=== PATIENT | female | born 1950 | race Caucasian/White ===

== ENCOUNTER 2023-05-29 08:51 | Emergency (ER) | payer MEDICARE, MEDICAID, SELFPAY ==
--- NOTE | ~2023-05-29 | CT_ITS ---
EXAMINATION: CT CHEST WITH CONTRAST CLINICAL INFORMATION: Chest trauma COMPARISON: CT abdomen and pelvis performed concurrently. TECHNIQUE: Multidetector volumetric CT imaging of the chest was obtained after the administration of 85 mL of Omnipaque 350 intravenous contrast without immediate adverse reactions. Axial MIP volume rendering provided. Sagittal and coronal reformatted images were obtained. This CT examination was performed using dose optimization techniques as appropriate, variously including the following: *Automated exposure control *Adjustment of mA and/or kV according to patient size (this includes techniques or standardized protocols for targeted exams where dose is matched to indication/reason for exam; i.e. extremities or head) *Use of iterative reconstruction technique DLP: 371.37 mGy-cm FINDINGS: LUNGS: Few scattered calcified pulmonary granulomas. A few scattered solid pulmonary micronodules for example in the right upper lobe, 9:181 and right lower lobe, 9:325. Scattered bandlike areas of atelectasis. A 0.7 x 0.5 cm solid left upper lobe pulmonary nodule, 9:216, average diameter of 0.6 cm. PLEURA: No pleural effusion. No pneumothorax. MEDIASTINUM: No cardiomegaly. Aorta and pulmonary artery are normal in caliber. No mediastinal lymphadenopathy. No hilar lymphadenopathy. CORONARY ARTERY CALCIFICATION: Coronary artery calcification is present. CHEST WALL/AXILLA: No axillary or internal mammary lymphadenopathy. UPPER ABDOMEN: Please refer to separately dictated CT abdomen and pelvis for evaluation of the upper abdomen. OSSEOUS STRUCTURES: Acute mildly displaced right posterior eighth rib fracture and nondisplaced right anterior seventh, eighth and ninth rib fractures. Partially imaged anterior cervical fusion hardware. CT/CT chest w IV con IMPRESSION: Acute mildly displaced right posterior eighth rib fracture and nondisplaced right anterior seventh through ninth rib fractures. No pneumothorax. Scattered solid pulmonary nodules measuring up to 0.6 cm average diameter. Per the 2017 revised Fleischner Society guidelines, recommend CT follow-up at 3-to-6 months. In high-risk patients, subsequent CT follow-up at 18-24 months is recommended. In low-risk patients, subsequent CT follow-up at 18-24 months is optional. The findings and recommendations were discussed with SHAHID Alvarez by telephone at 05/29/2023 12:39 PM and it was ascertained that the content and urgency of the report was understood at the time of direct communication.
--- NOTE | ~2023-05-29 | CT_ITS ---
EXAMINATION: CT ABDOMEN AND PELVIS WITH CONTRAST CLINICAL INFORMATION: Trauma. Fall. Abdominal pain. COMPARISON: Today's chest CT. TECHNIQUE: Multidetector volumetric images were obtained from the superior aspect of the liver through the pubic symphysis following administration 85 mL of Omnipaque 350 intravenous contrast. Sagittal and coronal reformatted images were obtained on the technologist's workstation. Oral contrast: No This CT examination was performed using dose optimization techniques as appropriate, variously including the following: *Automated exposure control *Adjustment of mA and/or kV according to patient size (this includes techniques or standardized protocols for targeted exams where dose is matched to indication/reason for exam; i.e. extremities or head) *Use of iterative reconstruction technique DLP: 1007.55 mGy-cm FINDINGS: LUNG BASES: Tiny calcified granuloma at the right base. LIVER, GALLBLADDER, AND BILIARY TREE: The liver is normal in size, shape, and attenuation. No focal hepatic lesion or biliary ductal dilatation is present. Status post cholecystectomy. Normal caliber bile ducts. PANCREAS: Uniform pancreatic enhancement without mass, ductal dilation or inflammation. SPLEEN: Normal size. Adjacent to 12 mm accessory spleen. ADRENAL GLANDS: No mass. KIDNEYS AND URETERS: There is a crescentic mixed attenuation (50 Hounsfield units) 10 mm subcapsular collection overlying the lateral interpolar and upper pole of the right kidney. This is suspicious for acute hemorrhage. Deformation of the renal parenchyma with concave margin raises concern for page kidney. No parenchymal laceration identified. Close clinical follow-up advised. Left kidney is normal in appearance. No hydronephrosis or hydroureter. 3 cm exophytic simple left renal cyst. No follow-up indicated. BLADDER: Unremarkable. GASTROINTESTINAL TRACT: Moderate right side predominant colonic stool burden. Sigmoid predominant diverticulosis without diverticulitis. Appendix not visualized. No pericecal inflammation. No small bowel obstruction. No mesenteric abnormality. Visualized esophagus and stomach within normal limits. No free air or free fluid. Line rectal fecal impaction. ABDOMINAL WALL: Subcutaneous fat stranding underlying prior lumbar surgery. LYMPH NODES: Normal. VASCULAR: Mild atherosclerotic peripheral vascular disease. PELVIC VISCERA: A 4.2 cm unilocular thin-walled simple fluid attenuation left ovarian cyst. Probable benign cyst. Follow with nonurgent ultrasound in 3-6 months. Uterus and adnexa are otherwise unremarkable. Incidental 13 mm calcified uterine fundal fibroid. OSSEOUS STRUCTURES: Left hip replacement. Degenerative changes in the right hip, sacroiliac joints and spine. Prior L4-L5 lumbar fusion. Grade 1 less than 10 mm L4-L5 anterolisthesis. No evidence of hardware failure. No acute compression deformity identified. There is an acute nondisplaced right posterior eighth rib fracture. CT/CT abdomen pelvis w IV con IMPRESSION: 1. There is a mixed attenuation crescentic fluid collection surrounding the right kidney and compressing the parenchyma consistent with subcapsular hemorrhage. This raises the possibility of page kidney. Close clinical correlation and follow-up is required. 2. Right posterior eighth rib fracture. 3. Rectal fecal impaction. Fleischner guidelines were followed.
--- NOTE | ~2023-05-29 | CT_ITS ---
EXAMINATION: CT HEAD WITHOUT CONTRAST CLINICAL INFORMATION: Fall head strike COMPARISON: None TECHNIQUE: Contiguous axial imaging was performed from the skull base to vertex without intravenous administration of contrast. This CT examination was performed using dose optimization techniques as appropriate, variously including the following: *Automated exposure control *Adjustment of mA and/or kV according to patient size (this includes techniques or standardized protocols for targeted exams where dose is matched to indication/reason for exam; i.e. extremities or head) *Use of iterative reconstruction technique DLP: 1483 mGy-cm FINDINGS: Beam hardening and patient motion artifact slightly limits evaluation. There is no evidence of acute intracranial hemorrhage or territorial infarction. Chronic white matter small vessel ischemic changes. No abnormal mass effect or midline shift is seen. Wilson to white matter differentiation is well preserved. No extra-axial fluid collections are identified. The ventricles are normal in size. There is no abnormal attenuation within the brain parenchyma. The osseous structures and soft tissues are normal. Trace fluid right mastoid air cells. Mucoperiosteal thickening versus polyp right maxillary sinus. The mastoid air cells and visualized portions of the paranasal sinuses are well aerated. Atherosclerotic calcifications. CT/CT cervical spine wo IV con IMPRESSION: 1. Beam hardening and patient motion artifact slightly limits evaluation. 2. No acute intracranial pathology. 3. Chronic white matter small vessel ischemic changes. 4. Trace fluid right mastoid air cells. Mucoperiosteal thickening versus polyp right maxillary sinus. EXAMINATION: Noncontrast CT scan of the cervical spine. INDICATION: Fall COMPARISON: None. TECHNIQUE: Helical, multidetector axial images were obtained from the occiput to the upper thorax. Coronal and sagittal reformats of the cervical spine were provided for interpretation. DLP: 1483 mGy-cm FINDINGS: Status post anterior cervical fusion with disc spacer at C5-C6. Spinal hardware is grossly intact. No acute fractures or dislocations of the cervical spine are seen. Straightening of normal cervical curvature. Multilevel degenerative changes. Anatomic alignment and positioning of the vertebral bodies and posterior elements is noted. The atlantoaxial joint and craniovertebral articulations are normal without evidence of subluxation. There is no prevertebral soft tissue swelling. The thyroid gland and visualized portions of the lung apices and mediastinum are unremarkable. IMPRESSION: 1. Status post anterior cervical fusion with disc spacer at C5-C6. Spinal hardware is grossly intact. 2. No acute visible fracture or dislocation. 3. Straightening of normal cervical curvature. 4. Multilevel degenerative changes.
--- NOTE | 2023-05-29 09:01 | ECG_ITS ---
Test Reason : FALL Blood Pressure : / mmHG Vent. Rate : 069 BPM Atrial Rate : 069 BPM P-R Int : 326 ms QRS Dur : 076 ms QT Int : 368 ms P-R-T Axes : 048 -20 034 degrees QTc Int : 394 ms Sinus rhythm with 1st degree A-V block Minimal voltage criteria for LVH, may be normal variant ( R in aVL ) Borderline ECG No previous ECGs available Referred By: Kristin Rasmussen Electronically Signed By:ULISES WILLIAMSON
--- NOTE | 2023-05-29 09:03 | ED.GENADULT ---
HPI - General Adult General Chief complaint: Fall Stated complaint: FALL LAST NOC,UNABLE TO GET UP,R RIB PAIN PER EMS Time Seen by Provider: 05/29/23 09:03 Source: patient Mode of arrival: EMS Limitations: no limitations History of Present Illness HPI narrative: Patient is a 73 year old female with a past medical history of herniated discs, cervical and lumbar spinal surgery in the last year, HTN, HLD, ERUM on SNRI, presenting via EMS status post fall with right rib pain. Patient tripped over the corner of a cabinet around 10pm last night, striking her right side on the cabinet as she fell to the ground. Patient denies head strike, LOC or dizziness at the time of the fall. Patient was unable to get up so she slept on the floor until this morning when she called a friend to help her, who then called EMS. Patient reports muscle spasms with 10/10 pain to her back. Patient has never had muscle spams in her back before. Patient denies fever, chills, cough, saddle paraesthsias, bowel incontinence, pain or loss of sensation of the lower extremities. Patient is incontinent of urine at baseline. Patient is ambulatory with a cane at baseline. Of note, Patient reports she had a viral illness a few weeks ago and her right ear is blocked. Not on thinners Related Data Allergies Allergy/AdvReac Type Severity Reaction Status Date / Time Penicillins Allergy Intermediate Hives Verified 05/29/23 09:04 Review of Systems Review of Systems: Constitutional : No Weight loss, No Fever, No Chills, No Fatigue, No Malaise ENT/Mouth : + Blocked right ear. No sore throat, No Rhinorrhea Eyes: No Eye Pain, No Swelling, No Redness Cardiovascular : No Chest Pain, No SOB, No Dyspnea on Exertion, No Orthopnea, No Edema, No Palpitations Respiratory : No Cough, No Sputum, No Wheezing Gastrointestinal : No Nausea, No Vomiting, No Diarrhea, No Constipation, No abdominal Pain, No Hematochezia, No Melena Genitourinary : No Dysuria, No Urinary Frequency, No Hematuria, Musculoskeletal : + Muscle spams in back, right sided rib/back pain. No joint pain, No Myalgias, No Joint Swelling Skin : No Skin Lesions, No rash Neuro : No Weakness, No Numbness, No Dizziness, No Headache Psych : No Anxiety/Panic, No Depression Heme/Lymph: No Bruising, No Bleeding,No Lymphadenopathy Endocrine : No Polyuria, No Polydipsia All other systems reviewed and are negative Yes all other systems are reviewed and are negative [facility] Past Medical History Attestation statement: The following information was validated with the patient. Source: old records reviewed and nursing notes reviewed Onset Date is defined in the Problem List Problems that require an onset date and time if occurred within 24 hrs of arrival to the ED Aortic Dissection and Rupture; Neurologic impairment; Cardiopulmonary Arrest; Endotracheal Intubation; Insertion or Replacement of Mechanical Circulatory Assist Device Medical History (Updated 05/29/23 @ 12:39 by SHAHID Alvarez) FH: total knee replacement High cholesterol Anxiety Fibromyalgia High blood pressure Surgical History (Updated 05/29/23 @ 09:12 by Gris Delong RN) S/P cholecystectomy S/P hip replacement H/O neck surgery Previous back surgery Social History Social History Smoked in Last 30 Days: No Use of substances other than those prescribed or required for medical reasons: No Advance Directives: No Advance Directives Information Provided: No Physical Exam ED Vital Signs: Vital Signs - 24 hr 05/29/23 09:04 05/29/23 11:38 05/29/23 14:00 Temperature 98.0 F 97.9 F 98.1 F Pulse Rate 68 68 69 Respiratory Rate 18 20 20 Blood Pressure 170/70 H 164/69 H 168/68 H Pulse Oximetry 95 97 98 Oxygen Delivery Method Room Air Room Air Room Air BMI result Body Mass Index 37.9 vss significant for hypertension 170/70. Appearance: Alert.? Oriented X3.? No acute distress.? Head: Normocephalic, atraumatic, no step-offs or deformities Eyes: Pupils equal, round and reactive to light.? Ears: No mastoid tenderness. Unable to visualize bilateral TM due to cerumen impaction. External ear canal without erythema, edema or discharge. Neck: Normal inspection.? Neck supple.? CVS: Normal heart rate and rhythm.? Pulses normal.?+ significant tenderness to palpation to right ribs 7-11 on the lateral and posterior aspect. Respiratory: No respiratory distress.? Breath sounds normal.? Abdomen: Soft and nontender.? Skin: Skin warm and dry.? Normal skin color.? Normal skin turgor.? Extremities: No lower extremity edema.? No calf ttp. 5/5 strength to bilateral upper and lower extremities Back: Severe tenderness to light palpation of the right back. of No midline tenderness, no C-spine tenderness, full range of motion, no CVA tenderness bilaterally. Neuro: Oriented X 3.? No motor deficit.? No sensory deficit. CN 2-12 intact. No saddle paresthesias. Full sensation of the upper and lower extremities. Course Reevaluation(s) Reevaluation #1: CBC w/ leukocytosis and shift likely due to trauma. Chemistry no acute findings requiring intervention patient's transaminases slightly elevated, total CPK elevated 378 however not meeting criteria for rhabdo. This is likely secondary to prolonged downtime. Troponin 11.1, EKG nonischemic. Coags unremarkable. Patient is COVID negative. CT abdomen and pelvis with mixed attenuation fluid collection surrounding the right kidney compressing the parenchyma consistent with subcapsular hemorrhage and right posterior 8th rib fracture. Will reach out to [facility] as we do not have trauma at this facility. CT head status post anterior cervical fusion with a disc space at C5-C6. No acute visible fracture. CT head no intracranial pathology. Time: 12:15 Reevaluation #2: Dr. Cooper [facility] accepts this transfer. Time: 12:29 Reevaluation #3: Patient aware of transfer. Type and screen pending. Images uploaded to [facility] Just received an additional call from [facility] ribs 7 through 10 appear to be broken on right. They will upload final results to the CT scan. Also noted to have pulmonary nodules. Time: 12:40 Medications Administered Discontinued Medications Generic Name Dose Route Start Last Admin Trade Name Donnie PRN Reason Stop Dose Admin Diazepam 2 mg 05/29/23 10:28 05/29/23 10:31 Diazepam 2 Mg Tablet PO 05/29/23 10:29 2 mg ONCE ONE Administration Hydromorphone HCl 1 mg 05/29/23 12:19 05/29/23 12:25 Hydromorphone Hcl 1 Mg/Ml Syringe IVPUSH 05/29/23 12:20 1 mg ONCE ONE Administration Protocol Sodium Chloride 500 mls @ 500 mls/hr 05/29/23 10:30 05/29/23 11:31 Ns IV 05/29/23 11:29 Infused .Q1H KEMAR Infusion Iohexol 100 ml 05/29/23 10:41 05/29/23 10:41 Iohexol 350 Mg/Ml 100 Ml Infus..Btl IV 05/29/23 10:42 85 ml ONCE ONE Administration Lidocaine 2 patch 05/29/23 09:28 05/29/23 09:48 Lidocaine 4 % Patch Adh..Patch TRANSDERMA 05/29/23 09:29 2 patch ONCE ONE Administration Protocol Morphine Sulfate 4 mg 05/29/23 09:26 05/29/23 09:48 Morphine Sulfate 4 Mg/Ml Cartridge IVPUSH 05/29/23 09:27 4 mg ONCE ONE Administration Protocol Medical Decision Making Medical Decision Making [facility] Narrative: Patient is a 73 year old female with a past medical history of herniated discs, cervical and lumbar spinal surgery in the last year, HTN, HLD, ERUM on SNRI, presenting via EMS status post fall with right rib pain. PE significant for severe pain to light palpation of the right lateral and mid back, muscle spams. Most likely rib fracture. Unlikely cauda equina, spinal fracture, pneumothorax, flail chest. Will rule out traumatic injury to chest/abd/pelvis. Will rule out UTI, metabolic derangments. Plan labs, imaging, EKG Differential Diagnosis Differential Diagnoses: The differential diagnosis associated with the presentation includes Most likely rib fracture. Unlikely cauda equina, spinal fracture, pneumothorax, flail chest. Will rule out traumatic injury to chest/abd/pelvis. Will rule out UTI, metabolic derangments. Admission/Observation Consideration of admission/observation: Escalation of care including admission/observation considered Consult Healthcare Provider Management of the patient was discussed with: Technical Aide ([facility] trauma ) Lab Data [facility] Lab Attestation statement: I reviewed the patient's lab results. CBC significant for leukocytosis of 13.4 with a left shift. CMP significant for elevated BUN 28, AST 71, ALT 61, CK 378, total protein 8.1 05/29/23 13:01 05/29/23 09:21 Labs: Lab Results 05/29/23 05/29/23 Range/Units 09:21 13:01 WBC 13.3 H 14.0 H (4.8-10.8) X10*3/uL RBC 4.90 4.54 (4.20-5.50) X10*6/uL Hgb 14.1 13.1 (12.0-16.0) g/dl Hct 42.7 39.8 (37.0-47.0) % MCV 87.1 87.7 (80.0-98.0) fL MCH 28.8 28.9 (27.0-33.0) pg MCHC 33.0 32.9 (31.0-35.0) g/dl RDW 12.5 12.5 (11.0-16.0) % Plt Count 259 254 (160-400) X10*3/uL MPV 10.2 10.2 (9.4-12.3) fL Immature Gran % (Auto) 0.4 0.3 (0.0-0.4) % Neut % (Auto) 88.3 H 84.2 H (45-73) % Lymph % (Auto) 6.9 L 9.3 L (20-40) % [place] % (Auto) 3.7 5.4 (2-11) % Eos % (Auto) 0.4 0.4 (0-4) % Baso % (Auto) 0.3 0.4 (0-2) % Lymph # (Auto) 0.9 L 1.3 (1.2-4.9) X10*3/uL [place] # (Auto) 0.5 0.8 (0.1-1.2) X10*3/uL Eos # (Auto) 0.1 0.1 (0.0-0.4) X10*3/uL Baso # (Auto) 0.0 0.1 (0.0-0.2) X10*3/uL Abs Immat Gran (auto) 0.05 H 0.04 H (0.00-0.03) X10*3/uL Absolute Neuts (auto) 11.8 H 11.8 H (2.0-8.3) x10*3/uL Absolute Nucleated RBC 0.000 0.000 (0.0-0.012) X10*3/uL Nucleated RBC % (auto) 0.0 0.0 (0.0-0.2) /100WBC PT 10.9 L (11.1-13.3) SEC INR 0.9 (0.9-1.1) Sodium 139 (135-145) mmol/L Potassium 4.6 (3.3-5.1) mmol/L Chloride 109 H (96-108) mmol/L Carbon Dioxide 21 L (22-29) mmol/L Anion Gap 14 (12-20) BUN 28 H (9-16) mg/dL Creatinine 1.06 (0.5-1.4) mg/dL Estim Creat Clear Calc 62.1 Estimated GFR 51 Random Glucose 103 (60-115) mg/dL Calcium 9.6 (8.4-10.2) mg/dL Magnesium 2.1 (1.6-2.6) mg/dL Total Bilirubin 0.6 (0.0-1.0) mg/dL AST 71 H (5-31) U/L ALT 61 H (0-31) U/L Alkaline Phosphatase 132 H (39-117) U/L Total Creatine Kinase 378 H (26-140) U/L Troponin I High Sens 11.1 (<3.5-17.0) ng/L Total Protein 8.1 H (6.5-8.0) g/dL Albumin 4.4 (3.5-5.0) g/dL COVID-19 (QUITA) Negative (Negative) COVID-19 Clin Com See Note Blood Type O Positive Antibody Screen NEGATIVE Independent Interpretation I performed an independent interpretation of an: EKG (Vent. Rate : 069 BPM Atrial Rate : 069 BPM P-R Int : 326 ms QRS Dur : 076 ms QT Int : 368 ms P-R-T Axes : 048 -20 034 degrees QTc Int : 394 ms Sinus rhythm with 1st degree A-V block Minimal voltage criteria for LVH, may be normal variant ( R in aVL ) Borderline ECG No ) and CT Scan Radiology Impression Discussion of test interpretation with radiology: I have reviewed the radiologist's reading. Radiologist Impression: Vent. Rate : 069 BPM Atrial Rate : 069 BPM P-R Int : 326 ms QRS Dur : 076 ms QT Int : 368 ms P-R-T Axes : 048 -20 034 degrees QTc Int : 394 ms Sinus rhythm with 1st degree A-V block Minimal voltage criteria for LVH, may be normal variant ( R in aVL ) Borderline ECG No previous ECGs available Chronic Conditions Patient?s care impacted by: Hypertension Critical Care Time Critical Care Time Critical Care Time: Yes Total Critical Care Time: 60 Attestation: I attest to this time spent taking care of the patient, obtaining history, physical, reviewing labs, imaging, speaking to my attending, speaking to specialist. Discharge Plan Discharge Clinical Impression: Fall, Hemorrhage of kidney, Multiple fractures of ribs Patient Disposition: Xfer Acute Care Hospital [place] [facility] [place] Interventions: Acute Care Transfer Worksheet (ED) Last Done: 05/29/23 14:20 Discharge Date/Time: 05/29/23 14:20
[2023-05-29 09:04] VITALS: BP 164/72; BP 170/70; PULSE 68; PULSE 74; RESP 18; TEMP 36.7; O2SAT 95; O2SAT 98; BMI 37.9
[2023-05-29 09:26] LABS: MANUAL DIFF FLAG NO
[2023-05-29 09:27] LABS: Basophils Percent Auto 0.3 % (0-2); Eosinophils Absolute Auto 0.1 X10*3/uL (0.0-0.4); Eosinophils Percent Auto 0.4 % (0-4); Hematocrit 42.7 % (37.0-47.0); Hemoglobin 14.1 g/dl (12.0-16.0); Imm Gran Abs Auto 0.05 X10*3/uL (0.00-0.03); Imm Gran Pct Auto 0.4 % (0.0-0.4); Lymphocytes Absolute Auto 0.9 X10*3/uL (1.2-4.9); Lymphocytes Percent Auto 6.9 % (20-40); Mean Corpuscular Hemoglobin 28.8 pg (27.0-33.0); Mean Corpuscular Volume 87.1 fL (80.0-98.0); Mean Platelet Volume 10.2 fL (9.4-12.3); Monocytes Absolute Auto 0.5 X10*3/uL (0.1-1.2); Monocytes Percent Auto 3.7 % (2-11); Neutrophils Absolute Auto 11.8 x10*3/uL (2.0-8.3); Neutrophils Percent Auto 88.3 % (45-73); Platelet Count 259 X10*3/uL (160-400); Red Cell Distribution Width 12.5 % (11.0-16.0); White Blood Count 13.3 X10*3/uL (4.8-10.8)
[2023-05-29 09:35] LABS: INTERNATIONAL NORM RATIO 0.9 (0.9-1.1); Prothrombin Time 10.9 SEC (11.1-13.3)
[2023-05-29 09:44] LABS: Alanine Aminotransferase 61 U/L (0-31); Albumin Level 4.4 g/dL (3.5-5.0); Alkaline Phosphatase 132 U/L (39-117); Anion Gap 14 (12-20); Aspartate Amino Transferase 71 U/L (5-31); Bilirubin Total 0.6 mg/dL (0.0-1.0); Blood Urea Nitrogen 28 mg/dL (9-16); Calcium 9.6 mg/dL (8.4-10.2); Carbon Dioxide 21 mmol/L (22-29); Chloride 109 mmol/L (96-108); Creatinine Clr Calc Pharmacy 62.1; Estimated Glomerular Filt Rate 51; Glucose Random 103 mg/dL (60-115); Magnesium 2.1 mg/dL (1.6-2.6); Potassium 4.6 mmol/L (3.3-5.1); Sodium 139 mmol/L (135-145); Total Protein 8.1 g/dL (6.5-8.0)
[2023-05-29 09:47] LABS: COVID-19 Test Negative (Negative); IDNOW Serial# 6674DD1D
[2023-05-29] MEDS: Morphine Sulfate 4 MG/ML CARTRIDGE IVPUSH (09:48)
[2023-05-29] MEDS: Lidocaine 4 % Patch ADH..PATCH 2 PATCH TRANSDERMA (09:48)
[2023-05-29 09:50] LABS: Troponin-I High Sensitivity 11.1 ng/L (<3.5-17.0)
--- NOTE | 2023-05-29 10:07 | PC.NURSE ---
patient a&ox3, c/o 02/22 rt flank/back pain, iv inserted, labs drawn, covid swab obtained, ekg performed, vss, pt medicated for pain, pt to ct scan, family at bedside, call [facility] within reach, will continue to monitor
--- NOTE | 2023-05-29 10:29 | PC.NURSE ---
patient back from ct scan, pt continues to complain of 10/10 pain to rt flank/back area, provider notified and pt will be medicated with new order.
[2023-05-29] MEDS: diazePAM 2 MG TABLET PO (10:31)
[2023-05-29] MEDS: 0.9 % Sodium Chloride 500 ML IV (10:31)
[2023-05-29] MEDS: iohexoL 350 MG/ML 100 ML INFUS..BTL IV (10:41)
--- NOTE | 2023-05-29 10:41 | PC.NURSE ---
pt medicated for pain, ivf hung per order, pure wick placed
[2023-05-29 11:38] VITALS: BP 164/69; PULSE 68; RESP 20; TEMP 36.6; O2SAT 97
--- NOTE | 2023-05-29 11:56 | PC.NURSE ---
patient a&ox3, vss, pt continues to complain of muscle spasms which are 10/10 pain with any small movement, call [facility] within reach, pt awaiting radiology results, will continue to monitor
--- NOTE | 2023-05-29 12:18 | PC.NURSE ---
phlebotomy called stat for t&s in room 17, pt to be transported to [facility].
[2023-05-29] MEDS: HYDROmorphone HCl 1 MG/ML SYRINGE IVPUSH (12:25)
[2023-05-29 13:05] LABS: MANUAL DIFF FLAG NO
[2023-05-29 13:06] LABS: Basophils Absolute Auto 0.1 X10*3/uL (0.0-0.2); Basophils Percent Auto 0.4 % (0-2); Eosinophils Absolute Auto 0.1 X10*3/uL (0.0-0.4); Eosinophils Percent Auto 0.4 % (0-4); Hematocrit 39.8 % (37.0-47.0); Hemoglobin 13.1 g/dl (12.0-16.0); Imm Gran Abs Auto 0.04 X10*3/uL (0.00-0.03); Imm Gran Pct Auto 0.3 % (0.0-0.4); Lymphocytes Absolute Auto 1.3 X10*3/uL (1.2-4.9); Lymphocytes Percent Auto 9.3 % (20-40); Mean Corpuscular HGB Conc 32.9 g/dl (31.0-35.0); Mean Corpuscular Hemoglobin 28.9 pg (27.0-33.0); Mean Corpuscular Volume 87.7 fL (80.0-98.0); Mean Platelet Volume 10.2 fL (9.4-12.3); Monocytes Absolute Auto 0.8 X10*3/uL (0.1-1.2); Monocytes Percent Auto 5.4 % (2-11); Neutrophils Absolute Auto 11.8 x10*3/uL (2.0-8.3); Neutrophils Percent Auto 84.2 % (45-73); Platelet Count 254 X10*3/uL (160-400); Red Blood Count 4.54 X10*6/uL (4.20-5.50); Red Cell Distribution Width 12.5 % (11.0-16.0)
--- NOTE | 2023-05-29 13:24 | PC.NURSE ---
this nurse attempted to call [facility] to give nurse to nurse report, there was no answer, will attempt to call again prior to the patient leaving
[2023-05-29 14:00] VITALS: BP 168/68; PULSE 69; RESP 20; TEMP 36.7; O2SAT 98
== END 2023-05-29 14:20 | disposition short-term general hospital (02) ==
PROVIDERS: Physician Assistant; Emergency Provider Emergency Medicine
DX: S22.49XA Multiple fractures of ribs, unspecified side, initial encounter for closed fracture (principal); N28.89 Other specified disorders of kidney and ureter; R51.9 Headache, unspecified; M54.2 Cervicalgia; R07.89 Other chest pain; W01.10XA Fall on same level from slipping, tripping and stumbling with subsequent striking against unspecified object, initial encounter; Y93.9 Activity, unspecified; Y92.89 Other specified places as the place of occurrence of the external cause; Y99.8 Other external cause status; Z11.52 Encounter for screening for COVID-19; Z79.899 Other long term (current) drug therapy
CPT/HCPCS: 36415; 70450; 71260; 72125; 74177; 80053; 82550; 83735; 84484; 85025; 85610; 86850; 86900; 86901; 87635; 93005; 96361; 96374; 96375; 99285; J1170; J2270; Q9967

== ENCOUNTER → 2023-05-29 09:01 | Outpatient (BNV) | payer MEDICARE, MEDICAID, SELFPAY | PROVIDERS: Emergency Provider Emergency Medicine; Visit Provider Internal Medicine | DX: I44.0 Atrioventricular block, first degree (principal) | CPT/HCPCS: 93010 ==

== ENCOUNTER 2024-11-22 08:45 | Outpatient (AMB) | payer MEDICARE, SELFPAY ==
--- OUTSIDE RECORDS SUMMARY | 2024-11-22 08:59 | XMS_ITS | Data Portability ---
Author Organization SHAHID Mccabe s, [address] Address [address] [place] [address] Care Team Providers Care General Internist Name Role Phone [facility] Primary Care Provider Assessment No assessment recorded. Plan of Treatment Reminders Order Date Submit Date Provider Last Modified By Organization Details Last Modified Time Details Appointments None recorded. Lab None recorded. Referral None recorded. Procedures None recorded. Surgeries None recorded. Imaging None recorded. Medication Orders doxycycline hyclate 100 mg capsule 2023 024 [facility] #[id number], [address] [place], [address], 12:27:10 Patient TargetsNo targets recorded. Patient Instructions Encounter Date Encounter Id Patient Instructions Last Modified By Organization Details Last Modified Time 05/18/2023 [id number] otitis media education Not available 05/18/2023 12:28:06 bronchitis: care instructions [email or web address] Not available 05/18/2023 12:28:06 Reason for Referral None Reported. Problems Name Problem SNOMED Code Status Onset Date Resolution Date Notes Provider Name and Address Organization Details Recorded Time Hypertensive disorder 65956068 Active Noelle olivier, PA - [facility] 12:05:50 Hypercholestero lemia 83714803 Active Noelle olivier, PA - [facility] 12:05:59 Problem Notes None recorded. Medical Equipment None Reported. Allergies Allergen ID Allergen Name Allergen Category Reaction Reaction Severity Criticality Documentation Date Start Date Code Code System Note Provider Name and Address Organization Details Recorded Time 079579 Product containin g penicilli n (product) medicatio n rash Not available Not available 05/18/2023 08881 8001 SNOMED SHAHID Judge [facility] 4 12:04:18 Medications Name Sig Start Date Stop Date Status Note LastModified by Organization Details LastModified Time doxycycline hyclate 100 mg capsule Take 2 capsules every day by oral route for 5 days. 2023 active Not Available Not Available Not Avai lable venlafaxine ER 150 mg capsule,extend ed release 24 hr Take 1 capsule every day by oral route. active Not Available Not Available No t Available ibuprofen 600 mg active Not Available Not Vicky ilable Not Available lisinopril 5 mg active Not Available Not Av ailable Not Available gabapentin active Not Available Not Av ailable Not Available rosuvastatin active Not Available Not Available Not Available Vitals Date Recorded Body height Body mass index (BMI) Body weight Oxygen saturation Oxygen saturation in Arterial blood by Pulse oximetry Heart rate Respiratory rate Body temperature Systolic And Diastolic Provider Name and Address Organization Details Last Updated DateTime 4 170.18 cm 36.8 kg/m2 786172. 21 g 98 % 98 % 57 /min 18 /min 97.3 [degF] 155/91 mm[Hg] Noelle KEY - [facility] 4 12:09:41 Social History Question Answer Notes LastModified by Organizat ion Details LastModified Time Tobacco Smoking Status Never Smoker SHAHID Judge [facility] 05/18/2023 12:06:51 Have You Had A Flu Shot This Season? Yes Information not available 05/18/2023 What Was The Date Of Your Most Recent Tobacco Screening? 05/18/2023 [email or web address] Information not available 05/18/2023 Have You Recently Traveled Abroad? No [email or web address] Information not available 05/18/2023 Sex: Unknown Functional Status Question Answer Note LastModified by Organizat ion Details LastModified Time Do you use any illicit or recreational drugs? No Information not available 05/18/2023 Do you or have you ever used any other forms of tobacco or nicotine? No Information not available 05/18/2023 What is your level of alcohol consumption? Occasional [email or web address] Information not available 05/18/2023 Mental Status None recorded. Family History Relationship Description Onset Age of this Age Resolved Age Notes LastModified by Organization Details LastModified Time Mother Malignant neoplasm of lung Not available 2023 12:06:16 Sister Diabetes mellitus [email or web address] Not available 2023 12:06:25 Medical History No medical history recorded. Gynecological History Statement/Question Response Is there any chance of ? No LMP N/A Obstetrics History GPAL:G 0 P 0 0 0 0 Immunizations Vaccine Type Date Status Note Provider Nam e and Address Organization Details Recorded Time Influenza, split virus, quadrivalent, preservative 8 completed Noelle Jones null, PA - [facility] 05/18/2023 12:03:51 zoster recombinant 0 completed Noelle Jones null, PA - [facility] 05/18/2023 12:03:51 Influenza, high-dose, quadrivalent, PF 3 completed Noelle Jones null, PA - [facility] 05/18/2023 12:03:51 Influenza, high-dose, quadrivalent, PF 0 completed Noelle Jones null, PA - [facility] 05/18/2023 12:03:51 Influenza, high-dose, quadrivalent, PF 2 completed Noelle Jones null, PA - [facility] 05/18/2023 12:03:51 Influenza, adjuvanted, quadrivalent, PF 1 completed Noelle Jones null, PA - [facility] 05/18/2023 12:03:51 COVID-19, mRNA, LNP-S, PF, 100 mcg/0.5mL dose or 50 mcg/0.25mL dose 1 completed Noelle Jones null, PA - [facility] 05/18/2023 12:03:51 COVID-19, mRNA, LNP-S, PF, 30 mcg/0.3 mL dose 1 completed Noelle Jones null, PA - [facility] 05/18/2023 12:03:51 COVID-19, mRNA, LNP-S, PF, 30 mcg/0.3 mL dose 1 completed Noelle Jones null, PA - [facility] 05/18/2023 12:03:51 Pneumococcal conjugate PCV20, polysaccharide BLO040 conjugate, adjuvant, PF 3 completed Noelle Jones null, PA - [facility] 05/18/2023 12:03:51 COVID-19, mRNA, LNP-S, bivalent, PF, 50 mcg/0.5 mL or 25mcg/0.25 mL dose 3 completed Noelle Jones null, PA - [facility] 05/18/2023 12:03:51 pneumococcal polysaccharide PPV23 9 completed Noelle Jones null, PA - [facility] 05/18/2023 12:03:51 Tdap 2 completed Noelle Jones null, PA - [facility] 05/18/2023 12:03:51 Influenza, high-dose, trivalent, PF 9 completed Noelle Jones null, PA - [facility] 05/18/2023 12:03:51 Past Encounters Encounter ID Performer Location Encounter Start Date Encounter Closed Date Diagnosis/Indication Diagnosis SNOMED-CT Code Diagnosis ICD10 Code Diagnosis Note [id number] [address] [place] [address] 04/03/2018 08:22:44 04/03/2018 09:12:13 [id number] [address] [place] [address] 07/04/2017 08:04:29 07/04/2017 08:31:44 [id number] [address] [place] [address] 02/02/2017 09:39:02 02/02/2017 10:35:53 [id number] [address] [place] [address] 10/03/2021 08:09:58 10/03/2021 08:58:28 [id number] SHAHID AIKEN [address] [place] [address] 05/18/2023 11:30:37 05/18/2023 12:30:09 Acute right otitis media 748062673 H66.91 Your ear pain is suspected to be caused by a middle ear infection known as acute otitis media.- You are being treated with an antibiotic . Use the medication s prescribed . Complete entire course of antibiotic . - Decongesta nts if tolerated. - Recommend recheck if fever develops or no improvemen t in 5-7 days. - I recommend having your ear rechecked in in 2 weeks with your primary provider to verify infection has resolved. -.Use a cool mist humidifier in the room that you sleep to add moisture to the air, which should soothe the airways and help loosen any mucus that may be present. Call 911 or proceed to nearest Emergency Department if you develop shortness of breath, chest pain, severe headache or other symptoms that concern you. Acute bronchitis 5349386 2 J20.9 Health Concerns Section Related Observation LastModified by Organization Detai ls LastModified Time None Recorded Concern Status LastModified by Organization Details LastModified Time None Recorded Advance Directives Directive None Recorded Payers Insurance Date Sequence Insurance Name Policy Number Policy Chen Covered Member ID Chen Member ID Guarantor Name 05/18/2023 1 [place] [email or web address] Yumiko Vazquez [id number] Yumiko Vazquez 07/19/2023 2 [place] [facility] Yumiko Vazquez [id number] Yumiko Vazquez 05/18/2023 [employer] CLAIM[employer] (MEDICARE [facility]) Yumiko Vazquez [id number] Yumiko Vazquez Notes Date Note Type Note Provider Name and Address Organization Details Recorded Time 05/18/2023 text/html Ear Pain Brief HPIReported bypatient.Location :left; right Onset/Timing:new onset; constant pain Duration:occurs ; constant pain Quality:no itching; no discharge from the ears; no burning Severity:getting worse; no fever; moderate pain Context:no recent trauma; no recent ear infection; no recent swimming;recent URI; Recently treated for sinusitis with azithromycin Associated Symptoms:no jaw popping or clicking; no discharge from ear; no nasal discharge; no sense of fullness; no sore throat; no jaw pain; no tinnitus;Cough;nora al congestion; no decreased hearing SHAHID AIKEN [address] [place], [address], [place] - [facility] 05/18/2023 12:31:49 OBGyn Episode No OBEpisode recorded.
--- OUTSIDE RECORDS SUMMARY | 2024-11-22 08:59 | XMS_ITS | Encounter Summary ---
Author Organization [facility] Address [address] [place] [address] Care Team Providers Care Documentation Coordinator Name Role Phone Una Obregon MD Primary Care Provider [phone] Encounter Details Date Type Department Care Team (Late st Contact Info) Description 09/27/2024 Results Follow-Up [facility] Internal Medicine [address] [place] [address] Una Obregon MD [address] [place] [address] Social History Tobacco Use Types Packs/Day Years Used Date Smoking Tobacco: Former Cigarettes 0.3 10 1 06/06/1966 - 04/06/1977 Smokeless Tobacco: Never Comments:: Alcohol Use Standard Drinks/Week Comments Yes 2 (1 standard drink = 0.6 oz pur e alcohol) [facility] Utilities Answer Date Recorded In the past 12 months has e electric, gas, oil, or water company threatened to shut off services in your home? No 09/24/2024 Hunger Vital Sign Answer Date Recorded Within the past 12 months, y ou worried that your food would run out before you got the money to buy more. Never true 09/25/19 25 Within the past 12 months, t he food you bought just didn't last and you didn't have money to get more. Never true 09/24/2024 Transportation Answer Date Recorded In the past 12 months, has l ack of reliable transportation kept you from medical appointments, meetings, work or from getting things needed for daily living? No 09/24/2024 Housing Answer Date Recorded Housing Risk Low 2 09/24/2024 Housing Risk Medium Not on file 09/24/2024 Housing Risk High Not on file 09/24/2024 What is your living situation today? [facility] 09/24/2024 Comments No Sex and Gender Information Value Date Recorded Sex Assigned at Female 04/04/2023 7:57 AM EST Legal Sex Female 12:00 AM EDT Gender Identity Female 04/04/2023 7:57 AM EST Sexual Orientation Straight 04/04/2023 7: 57 AM EST documented as of this encounter Plan of Treatment Upcoming Encounters Date Type Department Care Team (Late st Contact Info) Description 12/20/2024 9:45 AM EDT Appointment [address], [address] [place] [address] 02/27/2025 8:30 AM EDT Office Visit [facility] [address] [place] [address] Tomas Massey P, OD [address] [place] [address] 03/14/2025 9:30 AM EDT Office Visit [facility] Internal Medicine [address] [place] [phone] Una Obregon MD [address] [place] [address] 03/14/2025 3:30 PM EDT Follow-Up [address] Cardiology Medicine [address] [place] [address] Senior Operator: Una Gutierrez NP [address] [place], [place] [address] [place] [address] documented as of this encounter Visit Diagnoses Not on filedocumented in this encounter Care Teams Documentation Coordinator Relationship Specialty Start Date End Date Una Obregon MD [address] [place] [address] [place] [address] PCP - General Internal Medicine 12/02/16 documented as of this encounter
--- OUTSIDE RECORDS SUMMARY | 2024-11-22 08:59 | XMS_ITS ---
Author Organization [facility] Care Team Providers Care Assistant At Surgery Name Role Phone Effie Garcia Unavailable Unavailable Belinda Bahena Unavailable Unavailable Diane Lujan Unavailable Unavailable Ary [employer]LECT[employer]IC TRUCK DRIVER, Jada Rogel Unavailable Unavailable Yeyo, Donna Unavailable Unavailable Allergies and adverse reactions Code CodeSystem Substance Reaction Severity StartDate Concern Status 609606396 SNOMED CT Penicillins Mild 06/01/2023 activ e 411022 RXNORM Cymbalta Mild 06/01/2023 active Care Team Name Role Address Phone Organization Dates Belinda Bahena PCP [address] (Office): : [facility] 06/01/2023 - 06/03/2023 Effie Garcia [address] [place] [address], [facility] (Office): : [facility] 06/01/2023 - 06/03/2023 Diane Lujan [address] [place] [address], [facility] (Office): : [phone] [facility] 06/01/2023 - 06/03/2023 Jada Mcallister ELECTRIC TRUCK DRIVER [address] (Office): [facility] 06/01/2023 - 06/03/2023 Donna Yeyo [address] [place] [address] 1, [place], [address], [facility] (Office): : [phone] [facility] 06/01/2023 - 06/03/2023 Immunizations Immunization Status Vaccine Details Vaccine Code CodeSystem Date Notes Tdap completed diphtheria, teta nus toxoids and acellular pertussis vaccine 20 CVX created date: 06/02/2023 administere d date: 01/27/2022 PPSV23 completed pneumococcal polysaccharide vaccine, 23 valent 33 CVX created date: 06/02/2023 administere d date: 07/20/2018 Covid-19 Moderna Booster 50mcg(0.25ml)CVX 207 completed SARS-COV-2 (COVID-19) vaccine, mRNA, spike protein, LNP, preservative free, 100 mcg/0.5mL dose or 50 mcg/0.25mL dose 207 CVX created date: 06/02/2023 administere d date: 03/15/2021 Influenza-High Dose(Fluzone) completed Influenza, high-dose, split virus, quadrivalent, injectable, preservative free 197 CVX created date: 06/02/2023 administere d date: 01/14/2023 Covid-19 Vaccine (Pfizer CVX 208) dose #1 completed SARS-COV-2 (COVID-19) vaccine, mRNA, spike protein, LNP, preservative free, 30 mcg/0.3mL dose 208 CVX created date: 06/02/2023 administere d date: 07/25/2020 Covid-19 Vaccine (Pfizer CVX 208) dose #2 completed SARS-COV-2 (COVID-19) vaccine, mRNA, spike protein, LNP, preservative free, 30 mcg/0.3mL dose 208 CVX created date: 06/02/2023 administere d date: 08/15/2020 Influenza vaccine 9497-5159 completed Influenza, adjuvanted, inactivated, quadrivalent, injectable, preservative free 205 CVX created date: 06/03/2023 administere d date: 01/14/2023 COVID-19 Bivalent Vaccine completed SARS-COV-2 (COVID-19) vaccine, mRNA, spike protein, LNP, bivalent, preservative free, 50 mcg/0.5 mL or 25 mcg/0.25 mL dose 229 CVX created date: 06/02/2023 administere d date: 06/30/2022 PVC20 completed Pneumococcal conjugate vaccine 20-valent (PCV20), polysaccharide FDV425 conjugate, adjuvant, preservative free 216 CVX created date: 06/02/2023 administere d date: 06/30/2022 Mental Status Section Date Assessment Total Score Description 06/03/2023 BIMS 15 cognitively int act CAM 0 No delirium ind icated PHQ-9 01 minimal depress ion Problems Problem # Description Date of onset Resolved Date Code CodeSystem Concern Status 1 HISTORY OF FALLING 06/02/[address] active 2 MULTIPLE FRACTURES OF RIBS, RIGHT SIDE, SUBSEQUENT ENCOUNTER FOR FRACTURE WITH ROUTINE HEALING 06/02/[address] active 3 MUSCLE WEAKNESS (GENERALIZED) 06/02/[address] active 4 OTHER ABNORMALITIES OF GAIT AND MOBILITY 06/02/[address] active 5 UNSTEADINESS ON FEET 06/02/[address] active 6 ANXIETY DISORDER, UNSPECIFIED 06/01/[address] active 7 BRADYCARDIA, UNSPECIFIED 06/01/[address] active 8 ESSENTIAL (PRIMARY) HYPERTENSION 06/01/[address] active 9 GASTRO-ESOPHAGEAL REFLUX DISEASE WITHOUT ESOPHAGITIS 06/01/[address] active 10 HYPERLIPIDEMIA, UNSPECIFIED 06/01/[address] active 11 MULTIPLE FRACTURES OF RIBS, RIGHT SIDE, INITIAL ENCOUNTER FOR CLOSED FRACTURE 06/01/[address] active 12 UNSPECIFIED OSTEOARTHRITIS, UNSPECIFIED SITE 06/01/[address] active Reason for Referral No Reasons for Referral Entered Social History Social History Observation Description Start Date End Date Code Code System Current Smoking Status Tobacco smoking consumption unknown 515895394 SNOMED CT Sex Assigned At Female 1950 53926-2 [facility] Gender Identity Vital Signs Code Code System Vitals Name Values and Units Timing Information 28982-1 [facility] Weight Yxwwn=953.4 Units=Lbs 12056-4 [facility] Pain Level Value=2.0 06/03/2023 9279-1 [facility] Respiratory Rate Value=18.0 Units=/m in 06/03/2023 8462-4 [facility] Blood Pressure-Diastolic Value=72 Un its=mmHg 06/03/2023 8480-6 [facility] Blood Pressure-Systolic Thncl=685 Un its=mmHg 06/03/2023 8310-5 [facility] Body Temperature Value=97.9 Units= F 06/03/2023 8867-4 [facility] Heart rate Value=56.0 Units=/min 21419-6 [facility] O2 % BldC Oximetry Value=97.0 Units= % 06/03/2023 8302-2 [facility] Height Value=67.0 Units=Inches 06/01/2023
--- NOTE | 2024-11-22 09:14 | MHC.OFFVIS ---
Intake Visit Reasons: urinary incontinence Intake Note: New patient presents today for initial visit for urinary incontinence Urology Medication:None Blood Thinner:None Antibiotic Allergies:Penicillins PVR:31ml Allergies Penicillins Allergy (Intermediate, Verified 11/22/24 09:15) Hives Medication List - Last Reconciled 11/22/24 by Bonnie Mckeon MD acetaminophen (Tylenol) 650 mg (2 x 325 mg) PO Q6H PRN clindamycin HCl (Cleocin HCl) 600 mg (2 x 300 mg) PO TID fesoterodine ER (Toviaz) 8 mg PO DAILY gabapentin 300 mg PO BID ibuprofen 600 mg PO Q6H PRN lisinopril 10 mg PO DAILY rosuvastatin 5 mg PO DAILY venlafaxine ER 150 mg PO DAILY HPI Comments Details: History of Present Illness - The patient is a 74-year-old female presenting with urinary incontinence. - The urinary incontinence has been present for approximately two years and is described as severe, requiring multiple changes of clothing daily and nocturnal awakenings two to three times per night. - The patient reports that the incontinence is triggered by running water and positional changes, such as standing after sitting for extended periods. - The patient also experiences intermittent bowel incontinence - She underwent back surgery two years ago for a disc issue, which coincides with the onset of her urinary symptoms. - A previous CT scan revealed kidney changes, the patient states she fell and broke her rib at that time prompting the CT Results - CT scan- 05/29/2023: kidney changes noted, fluid collection surrounding the right kidney and compressing the parenchyma consistent with subcapsular hemorrhage. Plan - Obtain a urine sample to rule out infection or hematuria. - Order an ultrasound to reassess kidney and evaluate bladder. - Prescribe Toviaz 8 mg daily to manage bladder spasm symptom PFSH Medical History Peripheral neuropathy Osteoarthritis Obesity GERD (gastroesophageal reflux disease) Depression FH: total knee replacement High cholesterol Anxiety Fibromyalgia High blood pressure Surgical History S/P cholecystectomy S/P hip replacement H/O neck surgery Previous back surgery Review of Systems Const All systems reviewed & are unremarkable except as noted in HPI and below Reports no additional complaints Eyes Reports no additional complaints ENT Reports no additional complaints Card Reports no additional complaints Resp Reports no additional complaints GI Reports no additional complaints Reports as per HPI Musc Reports no additional complaints Skin/Breast Reports system reviewed and no additional complaints, except as documented Neuro Reports no additional complaints Psych Reports no additional complaints Endo Reports no additional complaints Se/Lymph Reports no additional complaints Aller/Immun Reports no additional complaints Physical Exam Const General: cooperative, healthy appearing and no acute distress Nutritional Appearance: overweight Orientation/consciousness: patient oriented x3 HEENT Head: Yes normal to inspection, Yes normocephalic and Yes atraumatic Eyes Conjunctivae: conjunctivae normal Neck Neck: Yes normal visual inspection and Yes trachea midline Chest Chest palpation & inspection: normal inspection of the chest Resp Effort & Inspection: normal respiratory effort GI Inspection: Yes normal to inspection Palpation (GI): Soft to palpation Skin General skin exam: no rashes or lesions noted Neuro General: patient oriented x3 Psych Appearance: grossly normal Results Reviewed Results Reviewed: DD/ 1424 CT ABDOMEN AND PELVIS WITH CONTRAST CLINICAL INFORMATION: Trauma. Fall. Abdominal pain. COMPARISON: Today's chest CT. TECHNIQUE: Multidetector volumetric images were obtained from the superior aspect of the liver through the pubic symphysis following administration 85 mL of Omnipaque 350 intravenous contrast. Sagittal and coronal reformatted images were obtained on the technologist's workstation. Oral contrast: No This CT examination was performed using dose optimization techniques as appropriate, variously including the following: *Automated exposure control *Adjustment of mA and/or kV according to patient size (this includes techniques or standardized protocols for targeted exams where dose is matched to indication/reason for exam; i.e. extremities or head) *Use of iterative reconstruction technique DLP: 1007.55 mGy-cm FINDINGS: LUNG BASES: Tiny calcified granuloma at the right base. LIVER, GALLBLADDER, AND BILIARY TREE: The liver is normal in size, shape, and attenuation. No focal hepatic lesion or biliary ductal dilatation is present. Status post cholecystectomy. Normal caliber bile ducts. PANCREAS: Uniform pancreatic enhancement without mass, ductal dilation or inflammation. SPLEEN: Normal size. Adjacent to 12 mm accessory spleen. ADRENAL GLANDS: No mass. KIDNEYS AND URETERS: There is a crescentic mixed attenuation (50 Hounsfield units) 10 mm subcapsular collection overlying the lateral interpolar and upper pole of the right kidney. This is suspicious for acute hemorrhage. Deformation of the renal parenchyma with concave margin raises concern for page kidney. No parenchymal laceration identified. Close clinical follow-up advised. Left kidney is normal in appearance. No hydronephrosis or hydroureter. 3 cm exophytic simple left renal cyst. No follow-up indicated. BLADDER: Unremarkable. GASTROINTESTINAL TRACT: Moderate right side predominant colonic stool burden. Sigmoid predominant diverticulosis without diverticulitis. Appendix not visualized. No pericecal inflammation. No small bowel obstruction. No mesenteric abnormality. Visualized esophagus and stomach within normal limits. No free air or free fluid. Line rectal fecal impaction. ABDOMINAL WALL: Subcutaneous fat stranding underlying prior lumbar surgery. LYMPH NODES: Normal. VASCULAR: Mild atherosclerotic peripheral vascular disease. PELVIC VISCERA: A 4.2 cm unilocular thin-walled simple fluid attenuation left ovarian cyst. Probable benign cyst. Follow with nonurgent ultrasound in 3-6 months. Uterus and adnexa are otherwise unremarkable. Incidental 13 mm calcified uterine fundal fibroid. OSSEOUS STRUCTURES: Left hip replacement. Degenerative changes in the right hip, sacroiliac joints and spine. Prior L4-L5 lumbar fusion. Grade 1 less than 10 mm L4-L5 anterolisthesis. No evidence of hardware failure. No acute compression deformity identified. There is an acute nondisplaced right posterior eighth rib fracture. CT/CT abdomen pelvis w IV con IMPRESSION: 1. There is a mixed attenuation crescentic fluid collection surrounding the right kidney and compressing the parenchyma consistent with subcapsular hemorrhage. This raises the possibility of page kidney. Close clinical correlation and follow-up is required. 2. Right posterior eighth rib fracture. 3. Rectal fecal impaction. Assessment & Plan Assessment & Plan (1) Urinary urgency: Code(s): R39.15 - Urgency of urination Category: Medical (2) Urinary incontinence: Code(s): R32 - Unspecified urinary incontinence Category: Medical (3) Abnormal CT scan, kidney: Code(s): R93.429 - Abnormal radiologic findings on diagnostic imaging of unspecified kidney Category: Medical Plan Plan - Obtain a urine sample to rule out infection or hematuria. - Order an ultrasound to assess kidney and bladder status. - Prescribe Toviaz 8 mg daily to manage bladder spasm symptoms. - Schedule a follow-up appointment in 10 to 12 weeks to evaluate the effectiveness of the medication and decide on further testing if necessary. Orders: Orders US retroperitoneal comp Today R39.15 - Urgency of urination Medications: New acetaminophen (Tylenol) 650 mg (2 x 325 mg) PO Q6H PRN 90 tabs 0RF fever lisinopril 10 mg PO DAILY 90 tabs 0RF venlafaxine ER 150 mg PO DAILY 90 caps 0RF fesoterodine ER (Toviaz) 8 mg PO DAILY 30 tabs 2RF clindamycin HCl (Cleocin HCl) 600 mg (2 x 300 mg) PO TID 90 caps 0RF gabapentin 300 mg PO BID 180 caps 0RF ibuprofen 600 mg PO Q6H PRN 120 tabs 0RF pain rosuvastatin 5 mg PO DAILY 90 tabs 0RF Patient Instructions: The patient had an opportunity to ask questions regarding treatment plan. The patient expressed understanding and agreement with the above treatment plan. The patient is aware they should contact our office by phone for worsening of their current condition or the appearance of new symptoms. Compliance is encouraged with any medications and followup testing that is ordered. It is a privilege to be allowed the opportunity to participate in the urologic care of your patient. If you have any questions or concerns regarding treatment for the above conditions please do not hesitate to contact me. The office telephone contact is [phone]. This note is constructed in part using voice recognition software. While every effort has been made to ensure accuracy outpatient interviewing clerk errors may have been included. Yours sincerely, Bonnie Mckeon MD Scribe Plan - Not visible on output: Patient was informed and verbally consented to the use of an ambient scribe for clinic note documentation during this visit. Coding Level of Care Code New Pt Level 4 (75974) Diagnoses Urinary urgency R39.15 Urinary incontinence R32 Ab[address] scan, kidney R93.429
== END 2024-11-22 10:03 | disposition home or self-care (01) ==
PROVIDERS: Visit Provider Urology
DX: R39.15 Urgency of urination (principal); R32 Unspecified urinary incontinence; R93.429 Abnormal radiologic findings on diagnostic imaging of unspecified kidney
CPT/HCPCS: 99204

== ENCOUNTER → 2024-11-22 08:45 | Outpatient (BNVA) | payer MEDICARE, SELFPAY | PROVIDERS: Visit Provider Urology | DX: R39.15 Urgency of urination (principal); R32 Unspecified urinary incontinence; R93.429 Abnormal radiologic findings on diagnostic imaging of unspecified kidney | CPT/HCPCS: 99202 ==

== ENCOUNTER 2025-01-21 10:19 | Outpatient (REF) | payer MEDICARE, SELFPAY ==
--- NOTE | ~2025-01-21 | US_ITS ---
EXAMINATION: US RETROPERITONEUM HISTORY: R39.15 - Urgency of urination TECHNIQUE: Real-time grayscale ultrasound imaging of the kidneys was performed and images were reviewed. COMPARISON: Correlation is made with a CT of the abdomen with contrast dated 05/29/2023. FINDINGS: Right kidney: The right kidney measures 9.9 x 5.9 x 5.6 cm. Renal parenchymal echotexture and thickness are normal. There are no masses. There is no hydronephrosis or renal calculi. Left Kidney: The left kidney measures 9.6 x 5.9 x 5.6 cm. Renal parenchymal echotexture and thickness are normal. There is a lower pole cyst measuring 3.3 x 3.0 x 3.3 cm. There is no hydronephrosis or renal calculi. The urinary bladder is unremarkable. Bilateral ureteral jets are identified. Before voiding, the urinary bladder measured 11.5 x 5.6 x 8.4 cm, for an estimated volume of 285 mL. After voiding, the urinary bladder measured 4.8 x 2.6 x 2.9 cm, for an estimated volume of 19 mL. Incidental note is made of a 2.7 x 1.9 x 1.9 cm right adnexal cyst and a 5.0 x 3.5 x 3.6 cm septated left adnexal cyst. US/US retroperitoneal comp IMPRESSION: 1. 3.3 x 3.0 x 3.3 cm left renal cyst. 2. Post void bladder residual of 19 mL. 3. Bilateral adnexal cysts are incidentally noted. Ultrasound follow-up is recommended. Electronically signed by: Gerber Mallyo MD 01/21/2025 11:27 AM EDT
[2025-01-21 11:48] LABS: Appearance Urine Clear; Glucose Urine UA Negative (Negative); PH 6.0 (5.0-9.0); Specific Gravity - Urine <= 1.005 (1.005-1.025)
--- OUTSIDE RECORDS SUMMARY | 2025-01-21 12:18 | XMS_ITS | Encounter Summary ---
Author Organization [facility] Address [address] [place] [address] Care Team Providers Care Denture Technician Name Role Phone Una Obregon MD Primary Care Provider [phone] Reason for Visit * Reason Onset Date Comments Letter for School/Work 01/16/2025 Encounter Details Date Type Department Care Team (Late st Contact Info) Description 01/16/2025 Telephone [facility] Internal Medicine [address] [place] [id number] Una Obregon MD [address] [place] [address] Letter for School/Work Social History Tobacco Use Types Packs/Day Years Used Date Smoking Tobacco: Former Cigarettes 0.3 10 1 06/06/1966 - 04/06/1977 Smokeless Tobacco: Never Comments:: Alcohol Use Standard Drinks/Week Comments Yes 2 (1 standard drink = 0.6 oz pur e alcohol) [facility] Utilities Answer Date Recorded In the past 12 months has [employer] electric, gas, oil, or water company threatened [...] AM EST documented as of this encounter Miscellaneous Notes * Telephone Encounter - ELMA Delong - 01/17/2025 11:27 AM EDT Letter left af medical front desk specialist for pt - pt aware * Telephone Encounter - ELMA Delong - 01/16/2025 11:56 AM EDT Okay to send a good health letter? You last saw her Sep, 2024 * Telephone Encounter - Natalie Castorena - 01/16/2025 10:23 AM EDT She uses the pool at [facility] and they are requesting a note stating she is in good health to be able to use the pool documented in this encounter Plan of Treatment Upcoming Encounters Date Type Department Care Team (Late st Contact Info) Description 02/27/2025 8:30 AM EDT Office Visit [facility] [place] [address] Tomas Massey, OD [address] [place] [address] 03/14/2025 9:30 AM EDT Office Visit [facility] Internal Medicine [address] [place] [address] Una Obregon MD [address] [place] [address] 03/14/2025 3:30 PM EDT Follow-Up [address] Cardiology Medicine [address] [place] [id number] Physical Science Aide: Una Gutierrez, INVESTIGATOR NARCOTICS [address] [facility] [place] [address] 12/26/2025 9:15 AM EDT Appointment [facility] [address] [facility], 5th [place] [address] documented as of this encounter Visit Diagnoses Not on filedocumented in this encounter Care Teams Denture Technician Relationship Specialty Start Date End Date Una Obregon MD [address] [place] [id number] PCP - General Internal Medicine 12/02/16 documented as of this encounter
--- OUTSIDE RECORDS SUMMARY | 2025-01-21 12:18 | XMS_ITS | Clinical Summary ---
Author Organization [facility] Address [address] [facility] [address] [place] [id number] Phone Care Team Providers Care Echo Vascular Tech Name Role Phone Una Obregon MD Primary Care Provider [phone] Allergies Active Allergy Reactions Criticality Noted Date Comments Duloxetine Hallucinations High 02/11/2024 Penicillins Hives,Rash High 02/11/2024 DRUG DERMATITIS Medications lisinopril (PRINIVIL,ZESTR IL) 10 MG tablet Take 10 mg by mouth daily. Active venlafaxine (EFFEXOR-XR) 150 MG 24 hr capsule Take 1 capsule every day by oral route. 08/02/2023 Active rosuvastatin (CRESTOR) 5 MG tablet Take 5 mg by mouth daily. Active ibuprofen (ADVIL,MOTRIN) 600 MG tablet Take 600 mg by mouth every 6 (six) hours as needed. 01/24/2024 Active gabapentin (NEURONTIN) 300 MG capsule Take 600 mg by mouth. 09/12/2023 Active acetaminophen (TYLENOL) 325 mg tablet Take 650 mg by mouth every 6 (six) hours as needed. 09/23/2022 Active fluocinonide 0.05 % external solution APPLY TO SCALP AT BEDTIME X2-3 WEEKS THEN NEEDED FLARES. 01/17/2024 Active Active Problems No known active problems Social History Tobacco Use Types Packs/Day Years Used Date Smoking Tobacco: Never Assessed Education Answer Date Recorded Are you interested in more education? Not on tennille e 02/11/2024 Are you concerned about learning? Not on file 02/11/2024 No 02/11/2024 No 02/11/2024 Digital Access Answer Date Recorded No 02/11/2024 No 02/11/2024 Reliable internet access at home? Not on file 02/11/2024 Device with a working camera? Not on file Comments Unknown Sex and Gender Information Value Date Recorded Sex Assigned at Not on file Legal Sex Female 9:38 AM EDT Gender Identity Not on file Sexual Orientation Not on file Last Filed Vital Signs Vital Sign Reading Time Taken Comments Blood Pressure 129/60 02/11/2024 10:04 AM EDT Pulse 60 02/11/2024 10:04 AM EDT Temperature 36.6 C (97.9 F) 02/11/2024 10:04 AM EDT Respiratory Rate 20 02/11/2024 10:04 AM EDT Oxygen Saturation 96% 02/11/2024 10:04 AM EDT Inhaled Oxygen Concentration - - Weight 109.8 kg (242 lb) 02/11/2024 10:04 AM EDT Height 167.6 cm (5' 6 ) 02/11/2024 10:04 AM EDT Body Mass Index 39.06 02/11/2024 10:04 AM EDT Plan of Treatment Health Maintenance Due Date Last Done Comments CREATININE LEVEL 1952 POTASSIUM LEVEL 1952 DEPRESSION SCREENING 1964 SMOKING Hx and SMOKELESS TOBACCO SCREENING 12/31/1964 COLOGUARD 12/31/1996 COLONOSCOPY 12/31/1996 COLORECTAL CANCER SCREENING 12/31/1996 FIT TEST 12/31/1996 FOBT 12/31/1996 SIGMOIDOSCOPY 12/31/1996 VIRTUAL COLONOSCOPY 12/31/1996 ZOSTER VACCINES (2 of 2) 04/17/2020 02/21/2020 INFLUENZA VACCINE (#1) 2024 , 01/27/2022, 03/13/2021, Additional history exists COVID-19 VACCINE ( season) 2025 06/30/2022, 03/15/2021, 08/15/2020, Additional history exists MAMMOGRAM 12/13/2025 12/14/2023, 0705/2023, 11/03/2022, Additional history exists LIPID PANEL 02/18/2028 02/17/2023, 06/0 11/2021, 10/23/2020, Additional history exists Adult Td,Tdap Booster 01/28/2032 01/27/2022 HEPATITIS C SCREENING Completed 11/07/2019 OSTEOPOROSIS SCREENING INITIAL (ONE-TIME) Completed 02/24/2022 PNEUMOCOCCAL VACCINES (50+ years) Completed 06/30/2022, 07/20/2018 RSV VACCINE Completed 09/13/2023 HEPATITIS A VACCINES Aged Out No long er eligible based on patient's age to complete this topic HIB VACCINES Aged Out No longer eligi ble based on patient's age to complete this topic MENINGOCOCCAL VACCINES (ACWY) Aged Out No longer eligible based on patient's age to complete this topic MENINGOCOCCAL VACCINES (B) Aged Out N o longer eligible based on patient's age to complete this topic Medical Devices Not on file Insurance MEDICARE PART A & B [facility] MEDEX SUPPLEMENT MEDICARE PART A & B [employer] MEDEX SUPPLEMENT MEDICARE PART A & B [employer] MEDEX SUPPLEMENT MEDICARE PART A & B [employer] MEDEX SUPPLEMENT MEDICARE PART A & B [employer] MEDEX SUPPLEMENT MEDICARE PART A & B [employer] MEDEX SUPPLEMENT Care Teams Echo Vascular Tech Relationship Specialty Start Date End Date Una Obregon MD [address] [place] [address] PCP - General Internal Medicine 02/11/24 Additional Source Comments The information contained in this document represents components of the legal health record. It is not the complete legal health record.[facility]
--- OUTSIDE RECORDS SUMMARY | 2025-01-21 12:18 | XMS_ITS | Clinical Summary ---
Author Organization [facility] Address [address] [place] [address] Care Team Providers Care Tick Sewer Name Role Phone Una Obregon MD Primary Care Provider [phone] Allergies Active Allergy Reactions Criticality Noted Date Comments Duloxetine Delirium Penicillins Hives,Rash High DRUG DERMATITIS Medications acetaminophen (TYLENOL) 325 mg tablet Take 2 tablets (650 mg total) by mouth every 6 hours as needed for pain. 09/24/19 23 Active Additional Information Patient not taking.Reported on 12/20/2024 gabapentin (NEURONTIN) 300 mg capsuleIndications :Fibromyalgia, primary Take 2 capsules (600 mg total) by mouth 2 times a day. 360 capsule 1 03/06/20 24 Active clindamycin (CLEOCIN) 300 mg capsule Take 2 capsules (600 mg total) by mouth once as needed (Dental work). 6 hours prior to dental work 12 capsule 03/08/20 24 Active venlafaxine XR (EFFEXOR XR) 150 mg capsule TAKE 1 CAPSULE BY MOUTH EVERY DAY 90 capsule 1 09/04/19 25 Active rosuvastatin (CRESTOR) 5 mg tablet TAKE 1 TABLET BY MOUTH EVERY DAY 90 tablet 3 09/18/19 25 Active semaglutide, weight loss, (WEGOVY) 0.25 mg/0.5 mL pen injector Inject 0.5 mL (0.25 mg total) under the skin once a week. 2 mL 09/25/19 25 Active Additional Information Patient not taking.Reported on 12/20/2024 tirzepatide, weight loss, (Zepbound) 2.5 mg/0.5 mL pen injector pen injectorIndication s:Class 2 severe obesity due to excess calories with serious comorbidity and body mass index (BMI) of 39.0 to 39.9 in adult (HCC),BMI 39.0-39.9,adult,Es sential (primary) hypertension,Hyper lipidemia, unspecified hyperlipidemia type,Second degree AV block, Mobitz type I Inject 0.5 mL (2.5 mg total) under the skin once a week. 2 mL 09/25/19 25 Active Additional Information Patient not taking.Reported on 12/20/2024 lisinopriL (PRINIVIL,ZESTRIL) 10 mg tablet TAKE 1 TABLET BY MOUTH EVERY DAY 90 tablet 1 12/05/19 25 Active fesoterodine 8 mg tablet extended release 24 hr SMARTSI Tablet(s) By Mouth Daily 11/23/19 25 Active methylPREDNISolone (MEDROL DOSEPACK) 4 mg tablet Take 1 tablet (4 mg total) by mouth See admin instructions. Use as directed by package instructions 21 tablet 12/07/19 25 Active diclofenac (VOLTAREN) 1% gel Apply 4 g topically to the affected area 4 times a day as needed (for lateral hip pain). Use as directed. 100 g 1 12/07/19 25 Active meloxicam (MOBIC) 15 mg tablet Take 1 tablet (15 mg total) by mouth daily as needed (for hip pain). 60 tablet 1 12/21/19 25 Active Active Problems Problem Noted Date Diagnosed Date Need for vaccination 03/08/2024 Multiple closed fractures of ribs of right side 06/07/2023 Closed hematoma of right kidney 06/07/2023 Second degree AV block, Mobitz type I 06/07/2023 Bradycardia by electrocardiogram 06/07/2023 Pulmonary nodule 06/07/2023 OAB (overactive bladder) 05/26/2023 LENA (stress urinary incontinence, female) 2023 Spastic neurogenic bladder 05/26/2023 Need for prophylactic antibiotic 03/01/2023 Lumbar degenerative disc disease 09/20/2022 Cervical stenosis of spinal canal 06/01/2022 Skin lesion on examination 01/26/2022 Urge incontinence 07/16/2021 Postmenopausal bone loss 12/25/2020 Cervical pain (neck) 12/25/2020 Chronic pain of both shoulders 02/07/2020 Tendinitis of left rotator cuff 02/07/2020 Tendinitis of left rotator cuff 02/07/2020 Major depressive disorder in partial remission 0 10/30/2019 Frequency of urination 10/30/2019 Medicare annual wellness visit, subsequent 10/12 Routine general medical exam ination at a health care facility 07/20/2018 Need for 23-polyvalent pneumococcal polysacchari de vaccine 07/20/2018 History of left hip replacement 07/20/2018 Malaise and fatigue 01/23/2018 Assessment & Plan (01/23/2018 1:01 PM EDT): Probably due to to the fibromyalgia, DJD, depression but will check labs and follow-up clinically. Need for influenza vaccination 01/23/2018 Assessment & Plan (01/23/2018 1:03 PM EDT): Was given today and then will do Pneumovax 23 Valent at the next visit. Dyslipidemia 01/23/2018 Assessment & Plan (01/23/2018 1:02 PM EDT): Will check the LDL and encouraged to be on a low-fat low-cholesterol diet and weight control. Depression 01/23/2018 Assessment & Plan (01/23/2018 1:02 PM EDT): Stable with the venlafaxine which was renewed today Pain of left calf 05/11/2017 Arthritis 04/26/2017 Assessment & Plan (04/27/2017 10:32 AM EST): Patient is on diclofenac 150 mg every morning for her arthritis. She also states that she is on gabapentin 1200 mg 3 times daily; gabapentin prescription verified in [facility]. - Continue gabapentin 1200 mg 3 times daily - Diclofenac 75 mg BID PRN Assessment & Plan (04/26/2017 9:19 PM EST): Patient is on diclofenac 150 mg every morning for her arthritis. She also states that she is on gabapentin 1200 mg 3 times daily; gabapentin prescription verified in [facility]. In the setting of elevated BUN to 27, will hold diclofenac, but continue with patient's home gabapentin. - Continue gabapentin 1200 mg 3 times daily - Hold diclofenac for now Need for vaccination for strep pneumoniae + infl uenza 02/24/2017 Hip tendinitis, left 07/28/2016 Presence of artificial hip, left 10/31/2015 Aftercare following hip joint replacement surger y 10/31/2015 Pre-operative exam 09/30/2015 Lipoma of skin and subcutaneous tissue 6 Hyperlipidemia 07/29/2014 Acute gout 06/27/2014 Degenerative joint disease (DJD) of hip 02/22/20 14 Osteoarthritis, multiple sites 12/07/2013 Assessment & Plan (10/31/2017 4:41 PM EDT): Unfortunately the tramadol has not been helping her and she was requesting for opioids which unfortunately could not give today. Advised weight loss exercise OTC NSAIDs and a prescription was renewed for ibuprofen 800 mg 1 pill 3 times a day with food. Educated about medication and side effects. Class 2 severe obesity due t o excess calories with serious comorbidity and body mass index (BMI) of 39.0 to 39.9 in adult 07/16/2013 Assessment & Plan (01/23/2018 1:00 PM EDT): Joined weight watchers and advised to continue with a low-fat low-cholesterol diet exercise weight control portion control and follow-up clinically. Assessment & Plan (10/31/2017 4:43 PM EDT): Educated diet exercise weight control portion control and she seems to be motivated and will follow up clinically. Vitamin D deficiency disease 06/09/2012 Acid reflux 06/01/2011 Lipoma 02/11/2011 Lower back pain 02/01/2011 Anserine bursitis 10/22/2010 Assessment & Plan (10/31/2017 4:40 PM EDT): Anserine bursitis of both knees will obtain rheumatology and/or orthopedic consultation for cortisone shots and advised local heat [employer] Aspercreme until then. Backache 05/22/2009 Lumbar discitis 05/22/2009 Ankle joint pain 03/18/2009 Anxiety with depression 01/27/2009 Assessment & Plan (04/27/2017 10:32 AM EST): Patient has anxiety and depression, and is currently managed on venlafaxine 150 mg daily. Mood and affect stable. - Continue venlafaxine 150 mg daily while admitted Assessment & Plan (04/26/2017 9:14 PM EST): Patient has anxiety and depression, and is currently managed on venlafaxine 150 mg daily. Mood and affect stable. - Continue venlafaxine 150 mg daily while admitted Fibromyalgia, primary 11/23/2008 Assessment & Plan (01/23/2018 1:00 PM EDT): She has been on gabapentin 1200 mg p.o. 3 times daily and offers no new complaints. Peripheral neuropathy 08/27/2008 Hypertension 07/16/2008 Assessment & Plan (01/23/2018 12:59 PM EDT): Continue with the lisinopril 10 mg p.o. daily and will check labs and follow-up in 3 months or sooner as needed. Assessment & Plan (10/31/2017 4:42 PM EDT): under Controll with the lisinopril 10 mg p.o. daily and will check labs and follow-up in 3 months. Assessment & Plan (04/27/2017 10:45 AM EST): Patient has hypertension, with blood pressures in the emergency department in the 150s systolic and 80s diastolic. She is managed outpatient on lisinopril 10 mg daily. - Continue with lisinopril 10 mg daily - BMP in the morning Assessment & Plan (04/26/2017 9:17 PM EST): Patient has hypertension, with blood pressures in the emergency department in the 150s systolic and 80s diastolic. She is managed outpatient on lisinopril 10 mg daily. Patient's BUN elevated to 27, but will continue on patient's home lisinopril, and monitor BUN in the morning. - Continue with lisinopril 10 mg daily - BMP in the morning Mobility impaired Assessment & Plan (10/31/2017 4:43 PM EDT): Show arthritis of the multiple joints involved with osteoarthritis and morbid obesity continue with OT and PT and physical therapy Resolved Problems Problem Noted Date Diagnosed Date Resolved Date Cervical disc herniation 06/01/2022 Achilles tendinitis of left lower extremity 04/26/2017 07/20/2018 Wound dehiscence 04/26/2017 07/20/2018 Assessment & Plan (04/26/2017 9:32 PM EST): Patient was seen in follow-up at the orthopedics clinic on 04/26/2017 after surgical repair of left Achilles tendon rupture. Patient splint was noted to be cracked, and upon inspection by the nurse practitioner at the orthopedics clinic, there was mild wound dehiscence over the surgical site. There is no active bleeding, drainage, or erythema per report. Patient was placed back into a short leg cast in the clinic. The wound dehiscence was felt to be due to incomplete compliance with nonweightbearing status to left lower extremity. Patient was recommended to come to the emergency department for possible physical therapy placement in the setting of not being able to maintain NWB status. PT recommended STR. - CM for further assistance with rehab placement - Patient recently moved to [facility], and is interested in finding a rehab facility in that area of the [facility] Achilles tendon rupture, left, sequela 04/26/2017 06/06/2017 Assessment & Plan (04/27/2017 10:49 AM EST): Patient suffered a left lower extremity injury in late January-early February 2017. She was seen by Dr. solomon Vazquez regarding his injury, and was found to have a complete left Achilles tendon avulsion from the calcaneal insertion, with tendon retraction by approximately 7.5 cm, as visualized on MRI. Several large calcaneal osseous avulsion fragments noted as well. Patient went to the OR on April [address] solomon Vazquez, and underwent a left Achilles debridement, calcaneal exostectomy, and FHL tendon transfer to the calcaneus. Patient was seen in follow-up at the orthopedic clinic on 04/26/2017, and was found to have mild wound dehiscence over the surgical site on the posterior aspect of the left ankle. Patient lives alone, and has several steps leading up into her house. She did not have physical therapy services in place after her surgery, as physical therapy assessment was going to be conducted on 04/27 after her follow-up appointment with orthopedics. Patient states that she feels very weak and deconditioned, and was having trouble navigating the use of crutches as a result of this weakness. She was seen by physical therapy in the emergency department, and was not cleared for home discharge; short-term rehab was recommended. - Patient is to be 100% nonweightbearing on the left lower extremity - APAP 650 mg every 4 hours as needed pain, Diclofenac 75 mg BID PRN pain. - I spoke with Ne Samano, orthopedic WINDOW DISPLAY DESIGNER. No adjustments to cast recommended, recommend continuing gabapentin to mitigate symptoms - Case management to assist with appropriate placement to short term rehab - Will continue with Lovenox 40 mg subcu daily per orthopedics recommendations for DVT prophylaxis, and will transition to ASA 325 mg qday - Patient has a follow-up appointment with the orthopedic clinic on May 03 DISPO- MEDICALLY CLEARED, pending placement at rehab. Assessment & Plan (04/26/2017 9:32 PM EST): Patient suffered a left lower extremity injury in late January-early February 2017. She was seen by Dr. solomon Vazquez regarding his injury, and was found to have a complete left Achilles tendon avulsion from the calcaneal insertion, with tendon retraction by approximately 7.5 cm, as visualized on MRI. Several large calcaneal osseous avulsion fragments noted as well. Patient went to the OR on April [address] solomon Vazquez, and underwent a left Achilles debridement, calcaneal exostectomy, and FHL tendon transfer to the calcaneus. Patient was seen in follow-up at the orthopedic clinic on 04/26/2017, and was found to have mild wound dehiscence over the surgical site on the posterior aspect of the left ankle. Patient lives alone, and has several steps leading up into her house. She did not have physical therapy services in place after her surgery, as physical therapy assessment was going to be conducted on 04/27 after her follow-up appointment with orthopedics. Patient states that she feels very weak and deconditioned, and was having trouble navigating the use of crutches as a result of this weakness. She was seen by physical therapy in the emergency department, and was not cleared for home discharge; short-term rehab was recommended. - Patient is to be 100% nonweightbearing on the left lower extremity - APAP 650 mg every 4 hours as needed pain - Contact physical therapy regarding continued to work with patient while awaiting placement - Case management to assist with appropriate placement to short term rehab - Will continue with Lovenox 40 mg subcu daily per orthopedics recommendations for DVT prophylaxis - Patient has a follow-up appointment with the orthopedic clinic on May 03 Elevated BUN 04/26/2017 04/27/2017 Assessment & Plan (04/26/2017 9:37 PM EST): On admission, patient's BUN is 27 and creatinine is 1.02. Review of records, both BUN and creatinine are elevated from 2015, BUN ranged from 12-21 and creatinine ranged from 0.7-0.9. Unclear etiology as patient appears euvolemic on exam. She denies any change in oral intake and denies any urinary obstruction. Patient does state that she takes diclofenac 150 mg daily, which may be a contributing factor to her elevated renal values. - Hold diclofenac - BMP in the AM URTI (acute upper respiratory infection) 06/27/2014 02/25/2017 Acute sinusitis 06/27/2014 02/25/2017 Primary osteoarthritis of left hip 03/11/2014 07/20/2018 Chest pain, pleuritic 08/10/20122016 Painful hip 02/01/2011 02/25/2017 Depression 08/05/2009 07/20/2018 Assessment & Plan (10/31/2017 4:42 PM EDT): She has been stable with the venlafaxine XR 150 mg p.o. daily Trochanteric bursitis of right hip 06/24/2009 07/20/2018 Joint pain, knee 07/16/2008 02/25/2017 Encounters Date Type Department Care Team Description 01/16/2025 Telephone [facility] Internal Medicine [address] [place] [phone] Una Obregon MD Letter for School/Work 12/20/2024 11:00 AM EDT Follow-Up [facility] [address] [place] [address] DmitriyGary PA Trochanteric bursitis of left hip (Primary Dx) 12/10/2024 Erroneous Telephone Encounter [facility] [address] [place] [address] Johan Gutierrez MD ERRONEOUS ENCOUNTER--DISREGARD (Primary Dx) 12/06/2024 9:15 AM EDT Office Visit [facility] [address] [place] [address] DmitriyGary PA Trochanteric bursitis of left hip (Primary Dx) 12/06/2024 8:27 AM EDT - 12/06/2024 11:59 PM EDT Hospital Encounter [facility] [address] [place] [address] Pain of left hip Discharge Disposition: Home or Self Care () 12/03/2024 Refill [facility] Internal Medicine [address] [place] [phone] Una Obregon MD from Last 3 Months Immunizations Immunization Administration Dates Next Due Covid-19 Monovalent Vaccine, Moderna, mRNA, PF 03/15/2021 Covid-19, Pfizer, mRNA, [place] valent, PF 30 mcg/0.3 mL dose (for ages 12 and older) 08/15/2020,07/25/2020 Diphtheria, Tetanus Toxoids and Acellular Pertussis Vaccine 01/27/2022 INFLUENZA, SPLIT VIRUS, TRIVALENT, PF 02/28/2015 ,02/19/2014,02/22/2013 Influenza, High Dose Seasona l, Preservative Free (FLUZONE HIGH-DOSE) 03/28/2019 Influenza, High Dose Seasona l, Quadrivalent PF 01/27/2022,01/22/2020 Influenza, Injectable, Quadr ivalent Preservative Free 01/14/2023,03/13/2021 Influenza, Injectable, Quadr ivalent, Contains Preservative 01/23/2018,02/24/2017 Influenza, Trivalent, Adjuva nted, PF (FLUAD) 03/08/2024 Influenza, Unspecified 03/30/2019 Pneumococcal Conjugate Vaccine, 13 Valent 2016 Pneumococcal Polysaccharide Vaccine, 23 Valent 07/20/2018 Tetanus Toxoid, Reduced Diph theria Toxoid, and Acellular Pertussis Vaccine, Adsorbed 01/27/2022,11/19/2008 Zoster Vaccine Recombinant 02/21/2020 Zoster Vaccine, Live 07/17/2013 Family History Medical History Relation Name Comments No Known Problems Child No Known Problems Cousin No Known Problems Daughter Heart disease Father Hyperlipidemia Father Hypertension Father Other Father Paternal histor y of Myasthenia Gravis No Known Problems Grandchild No Known Problems Maternal Grandfather No Known Problems Maternal Grandmother COPD Mother Cancer Mother Other Mother Family History of lung cancer No Known Problems Other No Known Problems Paternal Grandfather No Known Problems Paternal Grandmother Other Sister Family History of type 1 diabetes mellitus No Known Problems Son BRCA 1/2 Neg Hx Breast cancer Neg Hx Colon cancer Neg Hx Endometrial cancer Neg Hx Ovarian cancer Neg Hx Relation Name Status Comments Brother Alive Child Cousin Daughter Father Grandchild Maternal Grandfather Maternal Grandmother Mother Other Paternal Grandfather Paternal Grandmother Sister Alive Son Social History Tobacco Use Types Packs/Day Years Used Date Smoking Tobacco: Former Cigarettes 0.3 10 1 06/06/1966 - 04/06/1977 Smokeless Tobacco: Never Tobacco Cessation:Counseling Given: Not Answered Comments:: Alcohol Use Standard Drinks/Week Comments Yes 2 (1 standard drink = 0.6 oz pur e alcohol) [facility] Utilities Answer Date Recorded In the past 12 months has e [employer], [employer], oil, or water [employer] threatened to shut off services in your [...] Orientation Straight 04/04/2023 7: 57 AM EST Last Filed Vital Signs Vital Sign Reading Time Taken Comments Blood Pressure 138/76 09/24/2024 9:17 AM EDT Pulse 63 09/24/2024 9:17 AM EDT Temperature 35.2 C (95.4 F) 09/24/2024 9:17 AM EDT Respiratory Rate 16 08/11/2023 10:07 AM EDT Oxygen Saturation 97% 09/24/2024 9:17 AM EDT Inhaled Oxygen Concentration - - Weight 109.8 kg (242 lb) 03/08/2024 9:17 AM EDT Height 167.6 cm (5' 6 ) 09/24/2024 9:17 AM EDT Body Mass Index 39.06 03/08/2024 9:17 AM EDT Plan of Treatment Upcoming Encounters Date Type Department Care Team (Late st Contact Info) Description 02/27/2025 8:30 AM EDT Office Visit [facility] [place] [address] [place] [address] Tomas Massey P, OD [address] [place] [address] 03/14/2025 9:30 AM EDT Office Visit [facility] Internal Medicine [address] [place] [phone] Una Obregon MD [address] [place] [address] 03/14/2025 3:30 PM EDT Follow-Up [facility] 4th floor Cardiology Medicine [address] [place] [address] Medical Physics Researcher: Una Gutierrez, WINDOW DISPLAY DESIGNER [address] [facility] [place] [address] 12/26/2025 9:15 AM EDT Appointment [facility] ER [address] [facility], 5th [place] [address] Health Maintenance Due Date Last Done Comments Cologuard 1950 Sigmoidoscopy 1950 FOBT / Fit Test 04/15/2020 04/15/2019, 08/13/2013 Zoster Vaccines (3 of 3) 04/17/2020 02/21/2020, 08/2013 COVID-19 Vaccine ( season) 2025 04/06/2024, 06/30/2022, 03/15/2021, Additional history exists Influenza Vaccine (#1) 2025 , 01/14/2023, 01/27/2022, Additional history exists Medicare AWV 03/09/2025 03/08/2024, 02/13, 01/26/2022, Additional history exists Depression Screening and Follow-Up 09/24/2025 09/24/2024 Social Drivers of Health Annual Screening 09/24/2025 09/24/2024 Basic Metabolic Panel 09/26/2025 09/26/2024 , 03/22/2024, 02/17/2023, Additional history exists Fall Risk Screening 12/06/2025 12/06/2024 Mammogram 12/20/2026 12/20/2024, 11/15, 12/14/2023, Additional history exists RSV Vaccine (60+ years old and patients) (1 - 1-dose 75+ series) 12/31/2026 Colon Cancer Screening 11/20/2030 Colonoscopy 11/20/2030 11/20/2020, 05/07/2008 DTaP,Tdap,and Td Vaccines (4 - Td or Tdap) 01/28/2032 01/27/2022, 01/27/2022, 11/19/2008 Tobacco Screening 05/16/2042 12/06/2024 Hepatitis C Screening Completed 11/07/2019 Osteoporosis Screening Completed 02/24/2022, 2021 Pneumococcal Vaccine: 50+ Years Completed 06/30/2022, 07/20/2018, 02/24/2017 Alcohol/Substance Use Screening Completed 09/24/2024 Health Care Proxy Review Completed 025, 03/08/2024, 06/07/2023, Additional history exists Hepatitis B Vaccines Aged Out No long er eligible based on patient's age to complete this topic Medical Devices Implanted Type Area Aircraft Engine Technician Device Identifier Shelf Expiration Date Model / Serial / Lot Cage Spinal Lordotic Anterior Cervical Fusion Titanium Small 6mm [id number] 6deg Nanolock Endoskeleton - [id number] Implanted:Qty: 1 on 06/01/2022 by Andrea Phelps MD at [facility] Implant N/A: Spine Cervical Medtronic 05/26/2026 [id number] / / [id number] Plate Spinal Cervical1 Lvl Ti 1.5omy76ov Zevo - [id number] Implanted:Qty: 1 on 06/01/2022 by Andrea Phelps MD at [facility] Implant N/A: Spine Cervical Medtronic [id number] / / Nikolay Spinal Percutaneous Titanium 5.9nan81sd Latex Free Non-Sterile - [id number] Implanted:Qty: 2 on 09/20/2022 by Andrea Phelps MD at [facility] Implant N/A: Spine Lumbar Medtronic [id number] / / Infuse Small Kit - [id number] Implanted:Qty: 1 on 09/20/2022 by Andrea Phelps MD at [facility] Implant N/A: Spine Lumbar Medtronic 05/16/2024 [id number] / / Screw Tenodesis Vented [id number] Peek - [id number] Implanted:Qty: 1 on 04/12/2017 by Kole Vazquez MD at [facility] Screw Left: Heel [employer] 10/13/2021 [id number] / / [id number] Screw Cervical Anterior Variable Angle Self-Drilling 3.2yat62kv Zevo - [id number] Implanted:Qty: 4 on 06/01/2022 by Andrea Phelps MD at [facility] Screw N/A: Spine Cervical Medtronic [id number] / / Screw Set 5.5x6.0 Voyager - [id number] Implanted:Qty: 4 on 09/20/2022 by Andrea Phelps MD at [facility] Screw N/A: Spine Lumbar Medtronic [id number] / / Screw Awl Tip Non-Sterile [id number] Voyager - [id number] Implanted:Qty: 4 on 09/20/2022 by Andrea Phelps MD at [facility] Screw N/A: Spine Lumbar Medtronic [id number] / / Putty Demineralized Bone Matrix 1cc Dbx - [id number] - [id number] Implanted:Qty: 1 on 06/01/2022 by Andrea Phelps MD at [facility] Tissue MUSCULOSKELETAL TRANSPLANT FND 12/05/2023 [id number] / [id number] / Bone Graft Magnifuse 1cm X 5cm - [id number] Implanted:Qty: 1 on 09/20/2022 by Andrea Phepls MD at [facility] Tissue N/A: Spine Lumbar Medtronic [id number] 07/19/2024 [id number] / / [id number] Procedures * Due to [place] state law, this organization might not be sharing negative HIV tests. Procedure Name Priority Date/Time Associated Diagnosis Comments ADAM BILATERAL SCREENING DIGITAL MAMMOGRAM WITH TONY Routine 12/20/2024 9:18 AM EDT Encounter for screening mammogram for malignant neoplasm of breast XR HIP LEFT 2+ VIEW W PELVIS Routine 12/06/2024 8:46 AM EDT Pain of left hip COMPREHENSIVE METABOLIC PANEL Routine 09/26/2024 11:22 AM EDT Essential (primary) hypertension DEXA BONE DENSITY AXIAL Routine 02/24/2022 9:56 AM EDT Postmenopausal bone loss COLONOSCOPY 11/20/2020 HEPATITIS C ANTIBODY W/REFLEX TO HCV RNA, QUANTITATIVE PCR Routine 11/07/2019 10:50 AM EDT Encounter for hepatitis C screening test for low risk patient OCCULT BLOOD, FECAL (FIT) Routine 04/15/2019 12:00 AM EST Screening for colorectal cancer from Last 3 Months or Most Recently Relevant to Health Maintenance Results * Due to [place] state law, this organization might not be sharing negative HIV tests. * ADAM Bilateral Screening Digital Mammogram With Tony (12/20/2024 9:18 AM EDT) Anatomical Region Laterality Modality Breast Bilateral Mammography Narrative 2025 1:36 PM EDT Yumiko Vazquez Exam Date: 12/20/24 [facility] [address] [place] [address], 5th floor [place], [place] [address] EXAMINATION ADAM Bilateral Screening Digital Mammogram With Tony. INDICATION Yumiko Vazquez is a 75 y.o. female and is seen for: screening. CC and MLO views were obtained. FDA approved [employer] [place] AI (artificial intelligence) software and R2 CAD were used as a concurrent reading aid in the interpretation of this study. COMPARISON Relevant prior exams in PACS. Bilateral Breast Findings: There are scattered areas of fibroglandular density. No significant masses, calcifications or other abnormalities are seen. IMPRESSION No evidence of malignancy. BI-RADS ATLAS category (overall): 1 - Negative MANAGEMENT Routine Screening Mammogram in 1 Year is recommended for bilateral. The patient was entered into a reminder system with a target date for their next mammogram. The patient s lifetime risk for breast cancer was calculated as: Tyrer-Cuzick: 6.04%. For high-risk women (life-time risk greater than 20%), regardless of breast density, supplemental screening with annual breast MRI is recommended in addition to annual mammography, ideally staggered at 6-month intervals. Women with dense breast tissue and lifetime risk less than 20% may also benefit from supplemental screening with breast MRI (Epic [facility] M RI BREAST BILATERAL SCREENING W WO CONTRAST ) or automated breast ultrasound (Epic order A BUS ) depending on risk factors. https://acsearch.acr.org/docs/8387259/Narrative/ TC score is not calculated for women with personal history of breast cancer or if age >80 years. If this radiology report contains a blank impression section, it is an incomplete radiology report. Please contact the interpreting radiologist or applicable radiology division as soon as possible to obtain the completed interpretation. Roula Dykes MD Resulting Agency Comment [id number] Una Obregon MD IMG BI PROCEDURES Final Result * XR Hip Left 2+ View W Pelvis (12/06/2024 8:46 AM EDT) Anatomical Region Laterality Modality Body, Pelvis, Hip Left Computed Radio graphy 12/06/2024 12:0 9 PM EDT Impressions 12/06/2024 12:12 PM EDT Pelvis AP view left hip AP and crosstable lateral view. Mild generalized osteopenia. 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 Hardware is intact. No periprosthetic complications or fractures are identified. Moderate degenerative changes right hip and pubic symphysis. Mild degenerative changes right SI joint left SI joint is normal. Partially visualized hardware associated with the posterior spinal fusion intact within the lower lumbar spine. Calcified lesion within the pelvis can be further evaluated by [employer]ER ultrasound. If this radiology report contains a blank impression section, it is an incomplete radiology report. Please contact the interpreting radiologist or applicable radiology division as soon as possible to obtain the completed interpretation. Workstation ID: [id number] Narrative 12/06/2024 12:12 PM EDT COMPARISON: 07/28/2016 FINDINGS AND Resulting Agency Comment [id number] Procedure Note Solange Shelton MD - 12/06/2024 COMPARISON: 07/28/2016 FINDINGS AND IMPRESSION: Pelvis AP view left hip AP and crosstable lateral view. Mild generalized osteopenia. Normal anatomic alignment of the left totalhip replacement prosthesis. Hardware is intact. No periprostheticcomplications or fractures are identified. Moderate degenerative changes right hip and pubic symphysis. Milddegenerative changes right SI joint left SI joint is normal. Partiallyvisualized hardware associated with the posterior spinal fusion intactwithin the lower lumbar spine. Calcified lesion within the pelvis can be further evaluated by GYNultrasound. If this radiology report contains a blank impression section, it is anincomplete radiology report. Please contact the interpreting radiologistor applicable radiology division as soon as possible to obtain thecompleted interpretation. Workstation ID: [id number] Gary KEY IMG XR PROCEDURES Final Result * Comprehensive Metabolic Panel (09/26/2024 11:22 AM EDT) Glucose 85 65 - 99 mg/dL 09/26/2024 11:53 PM EDT [facility] [employer] [facility] Comment: Fasting reference interval BUN 22 7 - 25 mg/dL 09/26/2024 11:53 PM [employer] [facility] Creatinine 0.89 0.60 - 1.00 mg/dL 09/26/2024 11:53 PM EDT [facility] [employer] [facility] eGFR 69 > OR = 60 mL/min/1. 73m2 09/26/2024 11:53 PM [employer] [facility] Bun/Creatinine Ratio SEE NOTE: 6 - 22 (calc) 09/26/2024 11:53 PM EDT [employer] [facility] Comment: Not Reported: BUN and Creatinine are within reference range. Sodium 137 135 - 146 mmol/L 09/26/2024 11:53 PM [employer] [facility] Potassium 4.5 3.5 - 5.3 mmol/L 09/26/2024 11:53 PM [employer] [facility] Chloride 102 98 - 110 mmol/L 09/26/2024 11:53 PM [employer] [facility] Carbon Dioxide 27 20 - 32 mmol/L 09/26/2024 11:53 PM [employer] [facility] Calcium 9.3 8.6 - 10.4 mg/dL 09/26/2024 11:53 PM [employer] Protein, Total 6.6 6.1 - 8.1 g/dL 09/26/2024 11:53 PM [employer] [facility] Albumin 4.0 3.6 - 5.1 g/dL 09/26/2024 11:53 PM [employer] Globulin 2.6 1.9 - 3.7 g/dL (calc) 09/26/2024 11:53 PM EDT [facility] Albumin/Globuli n Ratio 1.5 1.0 - 2.5 (calc) 09/26/2024 11:53 PM EDT [facility] Bilirubin, Total 0.7 0.2 - 1.2 mg/dL 09/26/2024 11:53 PM EDT [facility] Alkaline Phosphatase 112 37 - 153 U/L 09/26/2024 11:53 PM EDT [facility] AST 16 10 - 35 U/L 09/26/2024 11:53 PM EDT [facility] ALT 15 6 - 29 U/L 09/26/2024 11:53 PM EDT [facility] Blood Structure of peripheral vein / Unknown 09/26/2024 11:22 AM EDT 09/26/2024 11:07 PM EDT Narrative [facility] - 09/26/2024 11:53 PM EDT FASTING:YES Una Obregon MD LAB BLOOD ORDERABLES Final Resu lt [facility] [address] [facility] 3rd Floor, [place] [address], Funding [employer] [facility] [address] [place] [address] * DEXA Bone Density Axial (02/24/2022 9:56 AM EDT) Anatomical Region Laterality Modality Hip, L-spine Bone Densitometr y 02/24/2022 10:4 2 AM EDT Impressions 02/24/2022 10:43 AM EDT This patient has osteopenia. Thank you for the courtesy of this referral. Breezy Reyes MD, PhD If this radiology report contains a blank impression section, it is an incomplete radiology report. Please contact the interpreting radiologist or applicable radiology division as soon as possible to obtain the completed interpretation. Workstation ID: [id number] Narrative 02/24/2022 10:43 AM EDT EXAM: BONE MINERAL DENSITY INDICATION: 72year old post-menopausal female with estrogen deficiency. PROCEDURE: The bone mineral density (BMD) of the spine and proximal right femur was determined using an external X-ray source Hologic. COMPARISON: [id number]-hs-[id number] prior studies cannot be compared via BMD and thus % change. Approximate comparisons can be made based on T values. FINDINGS: L1-L4: BMD 1.435gm/cm2 T-Score 2.5 Z-score: 5.6 Femoral neck: BMD 0.720gm/cm2 T-Score -1.2 Z-score 0.6 Total hip: BMD 1.153gm/cm2 T-Score 1.7 Z-score 3.2 The WHO FRAX score shows a 10-year fracture risk of: Major Osteoporotic Fracture: 8.0% Hip Fracture: 0.8% The World Health Organization (WHO) defines osteoporosis (as studied in post-menopausal women) as a T value of (-)2.5 or less at any site. Osteopenia is defined by a T value between (-)1.0 and (-)2.4. In general, it is recommended that patients receive approximately 1000 mg of calcium daily, either from dairy products or supplements (including multiple vitamin). Patients should consider supplementing with vitamin D. Vitamin D recommendations should be discussed with Health Care Provider and measurement of vitamin D levels should be considered. Careful weight-bearing exercise is also useful in maintaining bone mass and to help protect against falls. Resulting Agency Comment [id number] Procedure Note Breezy Reyes MD PhD - 02/24/2022 EXAM: BONE MINERAL DENSITY INDICATION: 72year old post-menopausal female with estrogen deficiency. PROCEDURE: The bone mineral density (BMD) of the spine and proximal rightfemur was determined using an external X-ray source Hologic. COMPARISON: [id number] prior studies cannot be compared via BMD andthus % change. Approximate comparisons can be made based on T values. FINDINGS: L1-L4: BMD 1.435gm/cm2 T-Score 2.5 Z-score: 5.6 Femoral neck: BMD 0.720gm/cm2 T-Score -1.2 Z-score 0.6 Total hip: BMD 1.153gm/cm2 T-Score 1.7 Z-score 3.2 The WHO FRAX score shows a 10-year fracture risk of: Major Osteoporotic Fracture: 8.0% Hip Fracture: 0.8% The World Health Organization (WHO) defines osteoporosis (as studied inpost-menopausal women) as a T value of (-)2.5 or less at any site.Osteopenia is defined by a T value between (-)1.0 and (-)2.4. In general, it is recommended that patients receive approximately 1000 mgof calcium daily, either from dairy products or supplements (includingmultiple vitamin). Patients should consider supplementing with vitamin D.Vitamin D recommendations should be discussed with Health Care Providerand measurement of vitamin D levels should be considered. Carefulweight-bearing exercise is also useful in maintaining bone mass and tohelp protect against falls. IMPRESSION: This patient has osteopenia. Thank you for the courtesy of this referral. Breezy Reyes MD, PhD If this radiology report contains a blank impression section, it is anincomplete radiology report. Please contact the interpreting radiologistor applicable radiology division as soon as possible to obtain thecompleted interpretation. Workstation ID: [id number] Una Obregon MD IMG DXA PROCEDURES Final Result * COLONOSCOPY (11/20/2020) Narrative Procedure Note Noah Marrero MD - 11/20/2020 1:43 PM EDT Gastroenterology Patient Name: Yumiko Vazquez Procedure Date: 11/20/2020 1:43 PM Date of : 1950 Admit Type: Outpatient Age: 70 Room: [place] [id number] Gender: Female Note Status: Finalized Attending MD: Noah Marrero MD Procedure: Colonoscopy Indications: Screening for colorectal malignant neoplasm Comorbidities Providers: Noah Marrero MD, Nhung Hooker MD (Fellow) Referring MD: Una Obregon MD (Referring MD) Requesting Provider: Medicines: Propofol per Anesthesia Complications: No immediate complications. Estimated Blood Loss: Estimated blood loss was minimal. Procedure: Pre-Anesthesia Assessment: - ASA Grade Assessment: III - A patient with severe systemic disease. After I obtained informed consent, the scope was passed under direct vision. Throughout the procedure, the patient's blood pressure, pulse, and oxygen saturations were monitored continuously. The Colonoscope was introduced through the anus and advanced to the cecum, identified by appendiceal orifice and ileocecal valve.The colonoscopy was performed without difficulty. Thepatient tolerated the procedure well. The quality of the bowel preparation was adequate to identify polyps. The bowel preparation used was Miralax. Findings: The perianal and digital rectal examinations were normal. Multiple small and large-mouthed diverticula were found in thesigmoid colon and descending colon. A 4 mm polyp was found in the rectum. The polyp was sessile. Thepolyp was removed with a cold snare. Resection and retrieval were complete. Estimated blood loss was minimal. Impression: - Diverticulosis in the sigmoid colon and in the descending colon. - One 4 mm polyp in the rectum, removed with a coldsnare. Resected and retrieved. Recommendation: - Repeat colonoscopy is not recommended forsurveillance based on pathology results. - Discharge patient to home (ambulatory). - Continue present medications. - Await pathology results. Noah Marrero MD 11/20/2020 5:15:03 PM This report has been signed electronically. Number of Addenda: 0 Note Initiated On: 11/20/2020 1:43 PM Noah Marrero MD PROVATION PROCEDURES Final Resu lt * Hepatitis C Antibody w/Reflex to HCV RNA, Quantitative PCR (11/07/2019 10:50 AM EDT) Pathologist [facility] Hepatitis C Antibody NON-REACT NAZ NON-REACT NAZ 11/08/2019 9:20 AM EDT [facility] Signal To Cut-Off 0.01 <1.00 11/08/2019 9:20 AM EDT [facility] [employer] [facility] Comment: HCV antibody was non-reactive. There is no laboratory evidence of HCV infection. In most cases, no further action is required. However, if recent HCV exposure is suspected, a test for HCV RNA (test code 81443) is suggested. For additional information please refer to http://[employer]/faq/PVX56d1 (This link is being provided for informational/ educational purposes only.) Blood Structure of peripheral vein / Unknown 11/07/2019 10:50 AM EDT 11/08/2019 1:29 AM EDT Narrative [facility] - 11/08/2019 12:23 PM EDT FASTING:YES us Una Obregon MD LAB BLOOD ORDERABLES Final Resu lt [facility] [address] [facility] 3rd Floor, [place] [address], [facility] [address] [place] [address] * Occult Blood, Fecal (FIT) (04/15/2019 12:00 AM EST) Pathologist [facility] Micro Number: [id number] 04/20/2019 3:23 PM EST [facility] Specimen Quality: Adequate 019 3:23 PM EST [facility] Source: STOOL PER RECTUM 04/20/2019 3:23 PM EST [facility] Status: FINAL 04/20/2019 3:23 PM EST [facility] Fecal Globin By Immunochemistry Not Detected 04/20/2019 3:23 PM EST [facility] Stool specimen (specimen) Rectal route / Unknown 04/15/2019 04/19/2019 7:33 PM EST Una Obregon MD LAB BODY FLUIDS AND STOOLS EZRA [place]ON Final Result [facility] [address] [facility] 3rd Floor, [place] [address], 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 Health Care Proxy 01/26/2022 2:02 PM Health Care Proxy 09/12/2015 12:00 AM 08/15 Health Care Proxy 12/06/2006 12:00 AM 11/14 * Full Code (Latest Code Status on File) Date Activated Date Inactivated Comments 09/20/2022 6:47 PM 09/23/2022 3:55 PM * Full Code Date Activated Date Inactivated Comments 09/20/2022 11:59 AM 09/20/2022 6:47 PM * Full Code Date Activated Date Inactivated Comments 06/01/2022 12:42 PM 06/02/2022 2:59 PM * Presumed Full Code Date Activated Date Inactivated Comments 06/01/2022 5:42 AM 06/01/2022 12:42 PM * Full Code Date Activated Date Inactivated Comments 04/26/2017 9:09 PM 04/27/2017 8:44 PM Healthcare Agents on File Name Relationship Healthcare Agent [facility] Rico Andino Brother Health Care Agent Yanet Andino Sister [facility] Health Care Agent Care Teams Tick Sewer Relationship Specialty Start Date End Date Una Obregon MD [address] [place] [address] [place] [address] PCP - General Internal Medicine 12/02/16
--- OUTSIDE RECORDS SUMMARY | 2025-01-21 12:18 | XMS_ITS | Encounter Summary ---
Author Organization [facility] Address [address] [place] [address] Care Team Providers Care Farmworker Name Role Phone Una Obregon MD Primary Care Provider [phone] Encounter Details Date Type Department Care Team (Late st Contact Info) Description 08/10/2018 External Result Entry [facility] Scanned HIM Department [address] [place] [address] Brandon Wilson [address] [place] [address] Social History Tobacco Use Types Packs/Day Years Used Date Smoking Tobacco: Former Cigarettes 0.3 10 1 06/06/1966 - 04/06/1977 Smokeless Tobacco: Never Comments:: Alcohol Use Standard Drinks/Week Comments Yes 1 (1 standard drink = 0.6 oz pur e alcohol) Comments No Sex and Gender Information Value [...] Description 02/27/2025 8:30 AM EDT Office Visit [facility] Eye [address] [address] Tomas Massey P, OD [address] [place] [address] [phone] 03/14/2025 9:30 AM EDT Office Visit [facility] Internal Medicine [address] [place] [address] Una Obregon MD [address] [place] [address] 03/14/2025 3:30 PM EDT Follow-Up [facility] 4th floor Cardiology Medicine [address] [place] [address] Tread Builder: Una Gutierrez, EARTH BORING MACHINE OPERATOR [address] [facility] [place] [address] 12/26/2025 9:15 AM EDT Appointment [facility] [address] [facility], 5th [place] [address] documented as of this encounter Procedures * Due to [facility] law, this organization might not be sharing negative HIV tests. Procedure Name Priority Date/Time Associated Diagnosis Comments HEART & VASCULAR - SCANNED Routine 08/10/2018 documented in this encounter Results * Due to [facility] law, this organization might not be sharing negative HIV tests. * HEART & VASCULAR - SCANNED (08/10/2018) Anatomical Region Laterality Modality Other Brandon Wilson SCANNED PROCEDURES Final Result documented in this encounter Visit Diagnoses Not on filedocumented in this encounter Care Teams Farmworker Relationship Specialty Start Date End Date Una Obregon MD [address] [place] [address] PCP - General Internal Medicine 12/02/16 documented as of this encounter
--- OUTSIDE RECORDS SUMMARY | 2025-01-21 12:18 | XMS_ITS | Encounter Summary ---
Author Organization [facility] Address [address] [place] [address] Care Team Providers Care Carbonation Equipment Operator Name Role Phone Una Obregon MD Primary Care Provider [phone] Encounter Details Date Type Department Care Team (Late st Contact Info) Description 12/26/2017 External Result Entry [facility] Scanned HIM Department [address] [place] [address] Brandon Wilson [address] [place] [phone] Social History Tobacco Use Types Packs/Day Years [...] Description 02/27/2025 8:30 AM EDT Office Visit [facility] Eye [address] [address] Tomas Massey P, OD [address] [place] [address] 03/14/2025 9:30 AM EDT Office Visit [facility] Internal Medicine [address] [place] [address] Una Obregon MD [address] [place] [address] 03/14/2025 3:30 PM EDT Follow-Up [facility] 4th floor Cardiology Medicine [address] [place] [address] Shopper Marketing Manager: Una Gutierrez, JEVON [address] [facility] [place] [address] 12/26/2025 9:[address] [facility] [address] [facility], 5th [place] [address] documented as of this encounter Visit Diagnoses Not on filedocumented in this encounter Care Teams Carbonation Equipment Operator Relationship Specialty Start Date End Date Una Obregon MD [address] [place] [address] PCP - General Internal Medicine 12/02/16 documented as of this encounter
--- OUTSIDE RECORDS SUMMARY | 2025-01-21 12:18 | XMS_ITS | Encounter Summary ---
Author Organization [facility] Address [address] [place] [address] Care Team Providers Care Asset Protection Associate Name Role Phone Una Obregon MD Primary Care Provider [phone] Encounter Details Date Type Department Care Team (Late st Contact Info) Description 09/25/2018 External Result Entry [facility] Scanned HIM Department [address] [place] [address] Provider-Not, In System Do Not Edit DO NOT CHANGE, [place] [address] Social History Tobacco Use Types Packs/Day Years [...] Description 02/27/2025 8:30 AM EDT Office Visit [facility] [address] [place] [address] Tomas Massey P, OD [address] [place] [address] 03/14/2025 9:30 AM EDT Office Visit [facility] Internal Medicine [address] [place] [address] Una Obregon MD [address] [place] [address] 03/14/2025 3:30 PM EDT Follow-Up [facility] 4th floor Cardiology Medicine [address] [place] [phone] Bonbon Cream Warmer: Una Gutierrez NP [address] [facility] [place] [address] 12/26/2025 9:15 AM EDT Appointment [address], 5th [place] [address] documented as of this encounter Procedures * Due to [place] state law, this organization might not be sharing negative HIV tests. Procedure Name Priority Date/Time Associated Diagnosis Comments PATHOLOGY - SCANNED Routine 09/25/2018 documented in this encounter Results * Due to [place] state law, this organization might not be sharing negative HIV tests. * PATHOLOGY - SCANNED (09/25/2018) 09/25/2018 us In System Do Not Edit Provider-Not SCANNED PROCE DURES Final Result documented in this encounter Visit Diagnoses Not on filedocumented in this encounter Care Teams Asset Protection Associate Relationship Specialty Start Date End Date Una Obregon MD [address] [place] [address] PCP - General Internal Medicine 12/02/16 documented as of this encounter
== END 2025-01-21 10:20 | disposition home or self-care (01) ==
LOC: HO.US 10:19
PROVIDERS: PCP Internal Medicine; Visit Provider Urology
DX: R39.15 Urgency of urination (principal)
CPT/HCPCS: 76770; 81003

== ENCOUNTER → 2025-01-21 10:21 | Outpatient (BNV) | payer MEDICARE, SELFPAY | PROVIDERS: PCP Internal Medicine; Visit Provider Radiology Diagnostic Radiology | DX: N28.1 Cyst of kidney, acquired (principal); N83.201 Unspecified ovarian cyst, right side; N83.202 Unspecified ovarian cyst, left side | CPT/HCPCS: 76770 ==

== ENCOUNTER 2025-01-31 07:21 | Outpatient (AMB) | payer MEDICARE, SELFPAY ==
--- NOTE | 2025-01-31 07:22 | MHC.OFFVIS ---
Intake Visit Reasons: 10w/UA Intake Note: patient presents today for follow up visit for urinary incontinence Urology Medication: Fesoterodine Blood Thinner:None Antibiotic Allergies:Penicillins Jewelry Making Instructor Required: No Accompanied by: Self / Same As Patient Allergies Penicillins Allergy (Intermediate, Verified 01/31/25 07:24) Hives Medication List - Last Reconciled 01/31/25 by Bonnie Mckeon MD acetaminophen (Tylenol) 650 mg (2 x 325 mg) PO Q6H PRN clindamycin HCl (Cleocin HCl) 600 mg (2 x 300 mg) PO TID fesoterodine ER (Toviaz) 8 mg PO DAILY gabapentin 300 mg PO BID ibuprofen 600 mg PO Q6H PRN lisinopril 10 mg PO DAILY rosuvastatin 5 mg PO DAILY venlafaxine ER 150 mg PO DAILY HPI Comments Details: 01/31/25--Yumiko is a 75 year old female History of Present Illness The patient is a 75-year-old female presenting with lower urinary tract symptoms. She has experienced overactive bladder symptoms with urge incontinence, which required the use of pads. A urinalysis conducted on Jan 21, 2025, was negative for blood and signs of infection. The patient reports significant improvement in her symptoms with medication, allowing her to wear regular underwear instead of pads. She occasionally experiences minor leakage and continues to carry pads as a precaution. The medication costs $31 per month, which she is willing to pay. An ultrasound revealed a cyst in the left kidney and an incidental ovarian cyst. The patient has been advised to consult with an ADOLESCENT COUNSELOR for further evaluation of the ovarian cyst. Results - Urinalysis on 01/21/25: Negative for blood and infection - Ultrasound: 3.3 cm cyst in left kidney, incidental ovarian cyst Plan 1. Overactive Bladder - Continue current medication as it has significantly improved symptoms - Refill prescription for a 90-day supply, with the option to cloth picker 30 days at a time if preferred - Follow-up in one year unless symptoms worsen 2. Incidental Ovarian Cyst - Referral to ADOLESCENT COUNSELOR for further evaluation - ADOLESCENT COUNSELOR office to contact patient for appointment scheduling 3. Incidental Renal Cyst - No immediate concern, monitor as per standard practice 11/22/24 History of Present Illness - The patient is a 74-year-old female presenting with urinary incontinence. - The urinary incontinence has been present for approximately two years and is described as severe, requiring multiple changes of clothing daily and nocturnal awakenings two to three times per night. - The patient reports that the incontinence is triggered by running water and positional changes, such as standing after sitting for extended periods. - The patient also experiences intermittent bowel incontinence - She underwent back surgery two years ago for a disc issue, which coincides with the onset of her urinary symptoms. - A previous CT scan revealed kidney changes, the patient states she fell and broke her rib at that time prompting the CT Results - CT scan- 05/29/2023: kidney changes noted, fluid collection surrounding the right kidney and compressing the parenchyma consistent with subcapsular hemorrhage. Plan - Obtain a urine sample to rule out infection or hematuria. - Order an ultrasound to reassess kidney and evaluate bladder. - Prescribe Toviaz 8 mg daily to manage bladder spasm symptom PFSH Medical History Peripheral neuropathy Osteoarthritis Obesity GERD (gastroesophageal reflux disease) Depression FH: total knee replacement High cholesterol Anxiety Fibromyalgia High blood pressure Surgical History S/P cholecystectomy S/P hip replacement H/O neck surgery Previous back surgery Review of Systems Const All systems reviewed & are unremarkable except as noted in HPI and below Reports no additional complaints Eyes Reports no additional complaints ENT Reports no additional complaints Card Reports no additional complaints Resp Reports no additional complaints GI Reports no additional complaints Reports as per HPI Musc Reports no additional complaints Skin/Breast Reports system reviewed and no additional complaints, except as documented Neuro Reports no additional complaints Psych Reports no additional complaints Endo Reports no additional complaints Se/Lymph Reports no additional complaints Aller/Immun Reports no additional complaints Telehealth Telehealth Telehealth Platform: [facility] Location of provider rendering services: practice address Location of patient: address on file Patient Identification confirmed using: Name, : Yes Telehealth method: video Patient verbally consented to treatment: Yes Patient verbally consented to billing insurance company: Yes Patient informed of any privacy concerns related to visit: Yes Results Reviewed Results Reviewed: Date of Service: 01/21/25 EXAMINATION: US RETROPERITONEUM HISTORY: R39.15 - Urgency of urination TECHNIQUE: Real-time grayscale ultrasound imaging of the kidneys was performed and images were reviewed. COMPARISON: Correlation is made with a CT of the abdomen with contrast dated 05/29/2023. FINDINGS: Right kidney: The right kidney measures 9.9 x 5.9 x 5.6 cm. Renal parenchymal echotexture and thickness are normal. There are no masses. There is no hydronephrosis or renal calculi. Left Kidney: The left kidney measures 9.6 x 5.9 x 5.6 cm. Renal parenchymal echotexture and thickness are normal. There is a lower pole cyst measuring 3.3 x 3.0 x 3.3 cm. There is no hydronephrosis or renal calculi. The urinary bladder is unremarkable. Bilateral ureteral jets are identified. Before voiding, the urinary bladder measured 11.5 x 5.6 x 8.4 cm, for an estimated volume of 285 mL. After voiding, the urinary bladder measured 4.8 x 2.6 x 2.9 cm, for an estimated volume of 19 mL. Incidental note is made of a 2.7 x 1.9 x 1.9 cm right adnexal cyst and a 5.0 x 3.5 x 3.6 cm septated left adnexal cyst. IMPRESSION: 1. 3.3 x 3.0 x 3.3 cm left renal cyst. 2. Post void bladder residual of 19 mL. 3. Bilateral adnexal cysts are incidentally noted. Ultrasound follow-up is recommended. DD/ 1424 CT ABDOMEN AND PELVIS WITH CONTRAST CLINICAL INFORMATION: Trauma. Fall. Abdominal pain. COMPARISON: Today's chest CT. TECHNIQUE: Multidetector volumetric images were obtained from the superior aspect of the liver through the pubic symphysis following administration 85 mL of Omnipaque 350 intravenous contrast. Sagittal and coronal reformatted images were obtained on the technologist's workstation. Oral contrast: No This CT examination was performed using dose optimization techniques as appropriate, variously including the following: *Automated exposure control *Adjustment of mA and/or kV according to patient size (this includes techniques or standardized protocols for targeted exams where dose is matched to indication/reason for exam; i.e. extremities or head) *Use of iterative reconstruction technique DLP: 1007.55 mGy-cm FINDINGS: LUNG BASES: Tiny calcified granuloma at the right base. LIVER, GALLBLADDER, AND BILIARY TREE: The liver is normal in size, shape, and attenuation. No focal hepatic lesion or biliary ductal dilatation is present. Status post cholecystectomy. Normal caliber bile ducts. PANCREAS: Uniform pancreatic enhancement without mass, ductal dilation or inflammation. SPLEEN: Normal size. Adjacent to 12 mm accessory spleen. ADRENAL GLANDS: No mass. KIDNEYS AND URETERS: There is a crescentic mixed attenuation (50 Hounsfield units) 10 mm subcapsular collection overlying the lateral interpolar and upper pole of the right kidney. This is suspicious for acute hemorrhage. Deformation of the renal parenchyma with concave margin raises concern for page kidney. No parenchymal laceration identified. Close clinical follow-up advised. Left kidney is normal in appearance. No hydronephrosis or hydroureter. 3 cm exophytic simple left renal cyst. No follow-up indicated. BLADDER: Unremarkable. GASTROINTESTINAL TRACT: Moderate right side predominant colonic stool burden. Sigmoid predominant diverticulosis without diverticulitis. Appendix not visualized. No pericecal inflammation. No small bowel obstruction. No mesenteric abnormality. Visualized esophagus and stomach within normal limits. No free air or free fluid. Line rectal fecal impaction. ABDOMINAL WALL: Subcutaneous fat stranding underlying prior lumbar surgery. LYMPH NODES: Normal. VASCULAR: Mild atherosclerotic peripheral vascular disease. PELVIC VISCERA: A 4.2 cm unilocular thin-walled simple fluid attenuation left ovarian cyst. Probable benign cyst. Follow with nonurgent ultrasound in 3-6 months. Uterus and adnexa are otherwise unremarkable. Incidental 13 mm calcified uterine fundal fibroid. OSSEOUS STRUCTURES: Left hip replacement. Degenerative changes in the right hip, sacroiliac joints and spine. Prior L4-L5 lumbar fusion. Grade 1 less than 10 mm L4-L5 anterolisthesis. No evidence of hardware failure. No acute compression deformity identified. There is an acute nondisplaced right posterior eighth rib fracture. CT/CT abdomen pelvis w IV con IMPRESSION: 1. There is a mixed attenuation crescentic fluid collection surrounding the right kidney and compressing the parenchyma consistent with subcapsular hemorrhage. This raises the possibility of page kidney. Close clinical correlation and follow-up is required. 2. Right posterior eighth rib fracture. 3. Rectal fecal impaction. Assessment & Plan Assessment & Plan (1) Ovarian cyst: Code(s): N83.209 - Unspecified ovarian cyst, unspecified side Category: Medical Plan Plan 1. Overactive Bladder - Continue current medication as it has significantly improved symptoms - Refill prescription for a 90-day supply, with the option to cloth picker 30 days at a time if preferred - Follow-up in one year unless symptoms worsen 2. Incidental Ovarian Cyst - Referral to ADOLESCENT COUNSELOR for further evaluation - ADOLESCENT COUNSELOR office to contact patient for appointment scheduling 3. Incidental Renal Cyst - No immediate concern, monitor as per standard practice Orders: Referrals ADOLESCENT COUNSELOR Referral N83.209 - Unspecified ovarian cyst, unspecified side Medications: Refilled fesoterodine ER (Toviaz) 8 mg PO DAILY 90 tabs 3RF Patient Instructions: The patient had an opportunity to ask questions regarding treatment plan. The patient expressed understanding and agreement with the above treatment plan. The patient is aware they should contact our office by phone for worsening of their current condition or the appearance of new symptoms. Compliance is encouraged with any medications and followup testing that is ordered. It is a privilege to be allowed the opportunity to participate in the urologic care of your patient. If you have any questions or concerns regarding treatment for the above conditions please do not hesitate to contact me. The office telephone contact is [phone]. This note is constructed in part using voice recognition software. While every effort has been made to ensure accuracy cellar hand errors may have been included. Yours sincerely, Bonnie Mckeon MD Scribe Plan - Not visible on output: Patient was informed and verbally consented to the use of an ambient scribe for clinic note documentation during this visit. Coding Level of Care Code Tele Est Pt Level 4 (67224) Complex EM visit Add On G2211 Diagnoses Ovarian cyst N83.209
--- OUTSIDE RECORDS SUMMARY | 2025-01-31 07:24 | XMS_ITS | Clinical Summary ---
Author Organization [facility] Address [address] [place] [address] Care Team Providers Care Sr. Payroll Processor Name Role Phone Una Obregon MD Primary Care Provider [phone] Allergies Active Allergy Reactions Criticality Noted Date [...] rehab placement - Patient recently moved to [facility], and is interested in finding a rehab facility in that area of the [facility] Achilles tendon rupture, left, sequela 04/26/2017 06/06/2017 [...] - I spoke with Ne Samano, orthopedic SALES REPRESENTATIVE ADDING MACHINES. No adjustments to cast recommended, recommend continuing [...] Type Department Care Team Description 01/16/2025 Telephone [facility] Internal Medicine [address] [place] [phone] Una Obregon MD Letter for School/Work 12/20/2024 11:00 AM EDT Follow-Up [facility] [address] [place] [address] DmitriyGary PA Trochanteric bursitis of left hip (Primary Dx) 12/10/2024 Erroneous Telephone Encounter [facility] [address] [place] [address] Johan Gutierrez MD ERRONEOUS ENCOUNTER--DISREGARD (Primary Dx) 12/06/2024 9:15 AM EDT Office Visit [facility] [address] [place] [address] DmitriyGary PA Trochanteric bursitis of left hip (Primary Dx) 12/06/2024 8:27 AM EDT - 12/06/2024 11:59 PM EDT Hospital Encounter [facility] Xray [address] [place] [address] Pain of left hip Discharge Disposition: Home or Self Care () 12/03/2024 Refill [facility] Internal Medicine [address] [place] [phone] Una Obregon MD from Last 3 Months Immunizations Immunization Administration Dates Next Due Covid-19 Monovalent Vaccine, Moderna, mRNA, PF 03/15/2021 Covid-19, Pfizer, mRNA, [place] valent, PF 30 mcg/0.3 mL dose (for [...] drink = 0.6 oz pur e alcohol) [facility] Utilities Answer Date Recorded In the past 12 months has e [employer], [employer], oil, or water [employer] threatened to shut off services in your [...] Description 02/27/2025 8:30 AM EDT Office Visit [facility] [place] [address] [place] [address] Tomas Massey P, OD [address] [place] [address] 03/14/2025 9:30 AM EDT Office Visit [facility] Internal Medicine [address] [facility] [place] [phone] Una Obregon MD [address] [place] [address] 03/14/2025 3:30 PM EDT Follow-Up [facility] 4th floor Cardiology Medicine [address] [place] [address] Pit Crew Support Worker: Una Gutierrez, SALES REPRESENTATIVE ADDING MACHINES [address] [facility] [place] [address] 12/26/2025 9:[address] [facility] [address] [facility], 5th [place] [address] Health Maintenance Due Date Last Done Comments [...] this topic Medical Devices Implanted Type Area Firer Helper Device Identifier Shelf Expiration Date Model / Serial / Lot Cage Spinal Lordotic Anterior Cervical Fusion Titanium Small 6mm [id number] 6deg Nanolock Endoskeleton - [id number] Implanted:Qty: 1 on 06/01/2022 by Andrea Phelps MD at [facility] Implant N/A: Spine Cervical Medtronic 05/26/2026 [id number] / / [id number] Plate Spinal Cervical1 Lvl Ti 1.8xmd20nt Zevo - [id number] Implanted:Qty: 1 on 06/01/2022 by Andrea Phelps MD at [facility] Implant N/A: Spine Cervical Medtronic [id number] / / Nikolay Spinal Percutaneous Titanium 5.7pua39ea Latex Free Non-Sterile - [id number] Implanted:Qty: 2 on 09/20/2022 by Andrea Phelps MD at [facility] Implant N/A: Spine Lumbar Medtronic [id number] / / Infuse Small Kit - [id number] Implanted:Qty: 1 on 09/20/2022 by Andrea Phelps MD at [facility] Implant N/A: Spine Lumbar Medtronic 05/16/2024 [id number] / / Screw Tenodesis Vented 6.97fwg29mq Peek - [id number] Implanted:Qty: 1 on 04/12/2017 by Kole Vazquez MD at [facility] Screw Left: Heel [employer] 10/13/2021 [id number] / / [id number] Screw Cervical Anterior Variable Angle Self-Drilling 3.6rzs37xv Zevo - [id number] Implanted:Qty: 4 on 06/01/2022 by Andrea Phelps MD at [facility] Screw N/A: Spine Cervical Medtronic [id number] / / Screw Set 5.5x6.0 Voyager - [id number] Implanted:Qty: 4 on 09/20/2022 by Andrea Phelps MD at [facility] Screw N/A: Spine Lumbar Medtronic [id number] / / Screw Awl Tip Non-Sterile 6.4hcy00bn Voyager - [id number] Implanted:Qty: 4 on 09/20/2022 by Andrea Phelps MD at [facility] Screw N/A: Spine Lumbar Medtronic [id number] / / Putty Demineralized Bone Matrix 1cc Dbx - [id number] - [id number] Implanted:Qty: 1 on 06/01/2022 by Andrea Phelps MD at [facility] Tissue MUSCULOSKELETAL TRANSPLANT FND 12/05/2023 [id number] / [id number] / Bone Graft Magnifuse 1cm X 5cm - [id number] Implanted:Qty: 1 on 09/20/2022 by Andrea Phelps MD at [facility] Tissue N/A: Spine Lumbar Medtronic [id number] 07/19/2024 [id number] / / [id number] Procedures * Due to [place] state law, this organization might not be sharing negative HIV tests. Procedure Name Priority Date/Time Associated Diagnosis Comments AMB EXTERNAL US KIDNEY, SCANNED RESULT 01/21/2025 LAB - SCANNED 01/21/2025 ADAM BILATERAL SCREENING DIGITAL MAMMOGRAM WITH TONY [...] to Health Maintenance Results * Due to [place] state law, this organization might not be sharing negative HIV tests. * US Kidney, Scanned Result (01/21/2025) Anatomical Region Laterality Modality Other 01/21/2025 us Onbase Scan Tiffanie AMB EXTERNAL RESULT PROCEDURE S Final Result * LAB - SCANNED (01/21/2025) us Onbase Scan Tiffanie LAB HISTORICAL RESULTS Final Result * ADAM Bilateral Screening Digital Mammogram With Tony (12/20/2024 9:18 AM EDT) Anatomical Region Laterality Modality Breast Bilateral Mammography Narrative 2025 1:36 PM EDT Yumiko Vazquez Exam Date: 12/20/24 [facility] [address] [place] [address], 5th floor [place], [place] [address] EXAMINATION ADAM Bilateral Screening Digital Mammogram With Tony. INDICATION Yumiko Vazquez is a 75 y.o. female and is seen for: screening. CC and MLO views were obtained. FDA approved [employer] AI (artificial intelligence) software and R2 CAD [...] from supplemental screening with breast MRI (Epic order M RI BREAST BILATERAL SCREENING W WO CONTRAST ) or automated breast ultrasound ([employer] order A BUS ) depending on risk factors. https://acsearch.acr.org/docs/7107296/Narrative/ TC score is not calculated for women with personal history of breast cancer or if age >80 years. If this radiology report contains a blank impression section, it is an incomplete radiology report. Please contact the interpreting radiologist or applicable radiology division as soon as possible to obtain the completed interpretation. Roula Dykes MD Resulting Agency Comment [id number] Una Obregon MD IMG BI PROCEDURES Final [...] the pelvis can be further evaluated by YARN SALVAGER ultrasound. If this radiology report contains a blank impression section, it is an incomplete radiology report. Please contact the interpreting radiologist or applicable radiology division as soon as possible to obtain the completed interpretation. Workstation ID: [id number] Narrative 12/06/2024 12:12 PM EDT COMPARISON: 07/28/2016 FINDINGS AND Resulting Agency Comment [id number] Procedure Note Solange Shelton MD - 12/06/2024 [...] possible to obtain thecompleted interpretation. Workstation ID: [id number] Gary KEY IMG XR PROCEDURES Final Result * Comprehensive Metabolic Panel (09/26/2024 11:22 AM EDT) Glucose 85 65 - 99 mg/dL 09/26/2024 11:53 PM EDT [facility] Comment: Fasting reference interval BUN 22 7 - 25 mg/dL 09/26/2024 11:53 PM EDT [facility] Creatinine 0.89 0.60 - 1.00 mg/dL 09/26/2024 11:53 PM EDT [facility] eGFR 69 > OR = 60 mL/min/1. 73m2 09/26/2024 11:53 PM [employer] [facility] Bun/Creatinine Ratio SEE NOTE: (calc) 09/26/2024 11:53 PM [employer] [facility] Comment: Not Reported: BUN and Creatinine are within reference range. Sodium 137 135 - 146 mmol/L 09/26/2024 11:53 PM EDT [facility] Potassium 4.5 3.5 - 5.3 mmol/L 09/26/2024 11:53 PM EDT [facility] Chloride 102 98 - 110 mmol/L 09/26/2024 11:53 PM EDT [facility] Carbon Dioxide 27 20 - 32 mmol/L 09/26/2024 11:53 PM EDT [facility] Calcium 9.3 8.6 - 10.4 mg/dL 09/26/2024 11:53 PM EDT [facility] Protein, Total 6.6 6.1 - 8.1 g/dL 09/26/2024 11:53 PM EDT [facility] Albumin 4.0 3.6 - 5.1 g/dL 09/26/2024 11:53 PM EDT [facility] Globulin 2.6 1.9 - 3.7 g/dL (calc) 09/26/2024 11:53 PM EDT [facility] Albumin/Globuli n Ratio 1.5 1.0 - 2.5 (calc) 09/26/2024 11:53 PM EDT [facility] Bilirubin, Total 0.7 0.2 - 1.2 mg/dL 09/26/2024 11:53 PM EDT [facility] Alkaline Phosphatase 112 37 - 153 U/L 09/26/2024 11:53 PM EDT [facility] AST 16 10 - 35 U/L 09/26/2024 11:53 PM EDT [facility] ALT 15 6 - 29 U/L 09/26/2024 11:53 PM EDT [facility] Blood Structure of peripheral vein / Unknown 09/26/2024 11:22 AM EDT 09/26/2024 11:07 PM EDT Narrative [facility] - 09/26/2024 11:53 PM EDT FASTING:YES us Una Obregon MD LAB BLOOD ORDERABLES Final Resu lt [facility] [address] [facility] 3rd Floor, [place] [address], [facility] [address] [place] [address] * DEXA Bone Density Axial (02/24/2022 9:56 [...] to obtain the completed interpretation. Workstation ID: [id number] Narrative 02/24/2022 10:43 AM EDT EXAM: BONE MINERAL DENSITY INDICATION: 72year old post-menopausal female with estrogen deficiency. PROCEDURE: The bone mineral density (BMD) of the spine and proximal right femur was determined using an external X-ray source Hologic. COMPARISON: [id number]-[id number]-[id number] prior studies cannot be compared via BMD [...] help protect against falls. Resulting Agency Comment [id number] Procedure Note Breezy Reyes MD PhD - 02/24/2022 EXAM: BONE MINERAL DENSITY INDICATION: 72year old post-menopausal female with estrogen deficiency. PROCEDURE: The bone mineral density (BMD) of the spine and proximal rightfemur was determined using an external X-ray source Hologic. COMPARISON: [id number]-so-[id number] prior studies cannot be compared via BMD [...] possible to obtain thecompleted interpretation. Workstation ID: [id number] us Una Obregon MD IMG DXA PROCEDURES Final Result * COLONOSCOPY (11/20/2020) Narrative Procedure Note Noah Marrero MD - 11/20/2020 1:43 PM EDT Gastroenterology Patient Name: Yumiko Vazquez Procedure Date: 11/20/2020 1:43 PM Date of : 1950 Admit Type: Outpatient Age: 70 Room: [place] [address] Gender: Female Note Status: Finalized Attending MD: [...] RNA, Quantitative PCR (11/07/2019 10:50 AM EDT) Hepatitis C Antibody NON-REACT NAZ NON-REACT NAZ 11/08/2019 9:20 AM EDT [facility] Signal To Cut-Off 0.01 <1.00 11/08/2019 9:20 AM EDT [facility] Comment: HCV antibody was non-reactive. There is no laboratory evidence of HCV infection. In most cases, no further action is required. However, if recent HCV exposure is suspected, a test for HCV RNA (test code 37528) is suggested. For additional information please refer to http://education.Innolight/faq/OWW81m4 (This link is being provided for informational/ educational purposes only.) Blood Structure of peripheral vein / Unknown 11/07/2019 10:50 AM EDT 11/08/2019 1:29 AM EDT Narrative [facility] - 11/08/2019 12:23 PM EDT FASTING:YES Una Obregon MD LAB BLOOD ORDERABLES Final Resu lt [facility] [address] [facility] 3rd Floor, [place] [address], [employer] [facility] [address] [place] [address] * Occult Blood, Fecal (FIT) (04/15/2019 12:00 AM EST) Micro Number: [id number] 04/20/2019 3:23 PM EST [facility] Specimen Quality: Adequate 019 3:23 PM EST [employer] [facility] Source: STOOL PER RECTUM 04/20/2019 3:23 PM EST [employer] [facility] Status: FINAL 04/20/2019 3:23 PM EST [employer] [facility] Fecal Globin By Immunochemistry Not Detected 04/20/2019 3:23 PM EST [facility] Stool specimen (specimen) Rectal route / Unknown 04/15/2019 04/19/2019 7:33 PM EST Una Obregon MD LAB BODY FLUIDS AND STOOLS EZRA [place] Final Result [facility] [address] [facility] 3rd Floor, [place] [address], [employer] [facility] [address] [place] [address] from Last 3 Months or Most Recently Relevant to Health Maintenance Insurance MEDICARE [facility] Advance Directives Documents on File Type Date Recorded Patient Bottle Line Worker Expl anation Health Care Proxy 01/26/2022 2:02 [...] Agents on File Name Relationship Healthcare Agent Relationshi p Communication Rico Andino Brother Health Care Agent Yanet Andino Sister [facility] Health Care Agent Care Teams Sr. Payroll Processor Relationship Specialty Start Date End Date Una Obregon MD [address] [place] [phone] PCP - General Internal Medicine 12/02/16
--- OUTSIDE RECORDS SUMMARY | 2025-01-31 07:24 | XMS_ITS | Encounter Summary ---
Author Organization [facility] Address [address] [place] [address] Care Team Providers Care Service Cleaner Name Role Phone Una Obregon MD Primary Care Provider [phone] Encounter Details Date Type Department Care Team (Late st Contact Info) Description 08/10/2018 External Result Entry [facility] Scanned HIM Department [address] [place] [address] Brandon Wilson [address] [place] [phone] Social History Tobacco Use Types Packs/Day Years [...] Description 02/27/2025 8:30 AM EDT Office Visit [facility] Eye [address] [address] Tomas Massey P, OD [address] [place] [phone] 03/14/2025 9:30 AM EDT Office Visit [facility] Internal Medicine [address] [place] [address] Una Obregon MD [address] [place] [address] 03/14/2025 3:30 PM EDT Follow-Up [facility] 4th floor Cardiology Medicine [address] [place] [address] Mechanical Facilities Technician: Una Gutierrez, SUPERVISOR PROPERTIES [address] [facility] [place] [address] 12/26/2025 9:15 AM EDT Appointment [facility] 55 [facility], 5th [place] [address] documented as of this encounter Procedures * Due to [facility] law, this organization might not be sharing negative HIV tests. Procedure Name Priority Date/Time Associated Diagnosis Comments HEART & VASCULAR - SCANNED Routine 08/10/2018 documented in this encounter Results * Due to [facility] law, this organization might not be sharing negative HIV tests. * HEART & VASCULAR - SCANNED (08/10/2018) Anatomical Region Laterality Modality Other Brandon Wilson SCANNED PROCEDURES Final Result documented in this encounter Visit Diagnoses Not on filedocumented in this encounter Care Teams Service Cleaner Relationship Specialty Start Date End Date Una Obregon MD [address] [place] [phone] PCP - General Internal Medicine 12/02/16 documented as of this encounter
--- OUTSIDE RECORDS SUMMARY | 2025-01-31 07:24 | XMS_ITS | Encounter Summary ---
Author Organization [facility] Address [address] [place] [address] Care Team Providers Care Carpet Cutter Name Role Phone Una Obregon MD Primary Care Provider Encounter Details Date Type Department Care Team (Late st Contact Info) Description 12/26/2017 External Result Entry [facility] Scanned HIM Department [address] [place] [address] Brandon Wilson [address] [place] [phone] Social History Tobacco Use Types Packs/Day Years [...] Description 02/27/2025 8:30 AM EDT Office Visit [facility] Eye [address] [address] Tomas Massey P, OD [address] [place] [phone] 03/14/2025 9:30 AM EDT Office Visit [facility] Internal Medicine [address] [place] [address] Una Obregon MD [address] [place] [address] 03/14/2025 3:30 PM EDT Follow-Up [facility] 4th floor Cardiology Medicine [address] [place] [address] Recoater: Una Gutierrez, JEVON [address] [facility] [place] [address] 12/26/2025 9:15 AM EDT Appointment [facility] [address] [facility], 5th [place] [address] documented as of this encounter Visit Diagnoses Not on filedocumented in this encounter Care Teams Carpet Cutter Relationship Specialty Start Date End Date Una Obregon MD [address] [place] [phone] PCP - General Internal Medicine 12/02/16 documented as of this encounter
--- OUTSIDE RECORDS SUMMARY | 2025-01-31 07:24 | XMS_ITS | Encounter Summary ---
Author Organization [facility] Address [address] [place] [address] Care Team Providers Care Chief Librarian Work With Blind Name Role Phone Una Obregon MD Primary Care Provider [phone] Encounter Details Date Type Department Care Team (Late st Contact Info) Description 09/25/2018 External Result Entry [facility] Scanned HIM Department [address] [place] [address] Provider-Not, In System Do Not Edit DO NOT CHANGE, [place] [address] Social History Tobacco Use Types Packs/Day Years [...] Description 02/27/2025 8:30 AM EDT Office Visit [facility] [address] [place] [address] Tomas Massey P, OD [address] [place] [address] 03/14/2025 9:30 AM EDT Office Visit [facility] Internal Medicine [address] [place] [address] Una Obregon MD [address] [place] [address] 03/14/2025 3:30 PM EDT Follow-Up [facility] 4th floor Cardiology Medicine [address] [place] [address] Agricultural Chemicals Inspector: Una Gutierrez NP [address] [facility] [place] [address] 12/26/2025 9:15 AM EDT Appointment [address], 5th [place] [address] documented as of this encounter Procedures * Due to [place] state law, this organization might not be sharing negative HIV tests. Procedure Name Priority Date/Time Associated Diagnosis Comments PATHOLOGY - SCANNED Routine 09/25/2018 documented in this encounter Results * Due to [place] state law, this organization might not be sharing negative HIV tests. * PATHOLOGY - SCANNED (09/25/2018) 09/25/2018 us In System Do Not Edit Provider-Not SCANNED PROCE DURES Final Result documented in this encounter Visit Diagnoses Not on filedocumented in this encounter Care Teams Chief Librarian Work With Blind Relationship Specialty Start Date End Date Una Obregon MD [address] [place] [phone] PCP - General Internal Medicine 12/02/16 documented as of this encounter
== END 2025-01-31 09:51 | disposition home or self-care (01) ==
LOC: HO.HUSH 07:21
PROVIDERS: PCP Internal Medicine; Visit Provider Urology
DX: N83.209 Unspecified ovarian cyst, unspecified side (principal)
CPT/HCPCS: 99214; G2211